=== PATIENT | female | born 2000 | race Caucasian/White ===

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

== ENCOUNTER 2019-12-23 17:17 | Emergency (ER) | payer OTHER ==
[2019-12-23] MEDS ORDERED: IBUPROFEN 600 MG TAB PO STA (18:13)
--- NOTE | 2019-12-23 18:37 | ED ---
ENT HPI - General Chief complaint: ENT Stated complaint: Tonsils Time Seen by Provider: 12/23/19 18:02 Source: patient Mode of arrival: ambulatory Limitations: no limitations - History of Present Illness Initial comments: Patient is a 19-year-old female presenting to the emergency Department with complaints of a sore throat 1 day. Patient states she felt fine yesterday and then woke up in the middle night with a sore throat. Patient states she's been feeling just generally ill today as well as her throat hurting. She denies any fever, chills, chest pain, shortness of breath, abdominal pain, nausea, vomiting, diarrhea. She states she is currently breast-feeding and has been taking Tylenol today with no relief of her sore throat. She states she has had tonsillitis in the past. She has no further complaints at this time. Upon arrival to the ER, patient was febrile to 100.3, pulse is 103, blood pressure 117/76, percent room air. - Related Data Home Medications Medication Instructions Recorded Confirmed Albuterol Inhaler (Mhu) [Ventolin 2 puff INHALATION RT-Q6H PRN 01/25/18 12/03/18 Hfa Inhaler (Mhu)] Previous Rx's Medication Instructions Recorded Acetaminophen Tab [Tylenol] 650 mg PO Q6HR PRN tab 07/26/18 [id number] Acid 1 each PO DAILY@1200 cap 07/26/18 [-U Capsule (formulary)] Ibuprofen [Motrin] 600 mg PO Q6HR PRN #30 tab 12/23/19 Penicillin V Potassium [Pen Vee K] 500 mg PO BID 10 Days #20 tablet 12/23/19 Allergies Allergy/AdvReac Type Severity Reaction Status Date / Time No Known Allergies Allergy Verified 12/23/19 17:21 Review of Systems ROS Statement: Those systems with pertinent positive or pertinent negative responses have been documented in the HPI. ROS Other: All systems not noted in ROS Statement are negative. Past Medical History Past Medical History: Asthma History of Any Multi-Drug Resistant Organisms: None Reported Past Surgical History: Appendectomy Past Anesthesia/Blood Transfusion Reactions: No Reported Reaction Past Psychological History: No Psychological Hx Reported Smoking Status: Former smoker Past Alcohol Use History: None Reported Past Drug Use History: Marijuana - Past Family History Mother Additional Family Medical History / Comment(s): gestational diabetes General Exam - General Exam Comments Initial Comments: GENERAL: Well-appearing, well-nourished and in no acute distress. HEAD: Atraumatic, normocephalic. EYES: Pupils equal round and reactive to light, extraocular movements intact, sclera anicteric, conjunctiva are normal. ENT: TMs normal, nares patent, oropharynx is erythematous, tonsils mildly enlarged with exudate. Moist mucous membranes. NECK: Normal range of motion, supple without lymphadenopathy or JVD. LUNGS: Breath sounds clear to auscultation bilaterally and equal. No wheezes rales or rhonchi. HEART: Regular rate and rhythm without murmurs, rubs or gallops. ABDOMEN: Soft, nontender, normoactive bowel sounds. No guarding, no rebound. No masses appreciated. : Deferred EXTREMITIES: Normal range of motion, no pitting or edema. No clubbing or cyanosis. NEUROLOGICAL: Normal speech, normal gait. PSYCH: Normal mood, normal affect. SKIN: Warm, Dry, normal turgor, no rashes or lesions noted. Limitations: no limitations Course Vital Signs 12/23/19 12/23/19 17:18 19:01 Temperature 100.3 F H 99 F Pulse Rate 103 H 89 Respiratory 18 16 Rate Blood Pressure 117/76 110/70 O2 Sat by Pulse 100 99 Oximetry Medical Decision Making - Medical Decision Making Patient is a 19-year-old female here for sore throat times one day. She did arrive febrile. Patient was given Motrin. Strep test is negative, culture is pending. I discussed with patient given her fever, history of tonsillitis, I will treat her with penicillin VK. She may continue with Motrin as needed for pain and swelling. She is in agreement with this plan of care. She'll follow up with her PCP. Return parameters were discussed with the patient she verbalized understanding. Case discussed with Dr. harrell. - Lab Data Lab Results 12/23/19 Range/Units 18:36 Group A Strep Rapid Negative (Negative) Disposition Clinical Impression: Tonsillitis Disposition: HOME SELF-CARE Condition: Stable Instructions (If sedation given, give patient instructions): Tonsillitis (ED) Additional Instructions: Please return to the Emergency Department if symptoms worsen or any other concerns. Take antibiotic as prescribed. Continue with Motrin for pain as well. Follow up with PCP. Prescriptions: Ibuprofen [Motrin] 600 mg PO Q6HR PRN #30 tab PRN Reason: Pain Penicillin V Potassium [Pen Vee K] 500 mg PO BID 10 Days #20 tablet Is patient prescribed a controlled substance at d/c from ED?: No Referrals: Sarita Corado MD [Primary Care Provider] - 1-2 days
[2019-12-23 19:02] VITALS: BP 110/70; PULSE 89; RESP 16; TEMP 99
== END 2019-12-23 19:01 | disposition home or self-care (01) ==
LOC: EC 17:17
DX: J03.90 Acute tonsillitis, unspecified (principal); J45.909 Unspecified asthma, uncomplicated; Z87.891 Personal history of nicotine dependence
CPT/HCPCS: 87081; 87430; 99283

== ENCOUNTER 2019-12-24 07:19 | Emergency (ER) | payer OTHER ==
[2019-12-24 07:28] VITALS: TEMP 98.5
[2019-12-24] MEDS ORDERED: diphenhydrAMINE 50 MG/ML 1 ML VIAL IVP STA (07:34)
[2019-12-24] MEDS ORDERED: ONDANSETRON 4 MG/2 ML VIAL IVP STA (07:34)
[2019-12-24] MEDS ORDERED: SODIUM CHLORIDE 0.9% 2,000 ML IV STA (07:34)
[2019-12-24] MEDS ORDERED: KETOROLAC 30 MG/ML 1 ML VIAL IVP STA (07:35)
--- NOTE | 2019-12-24 07:40 | ED ---
Nausea/Vomiting/Diarrhea HPI - General Chief complaint: Nausea/Vomiting/Diarrhea Stated complaint: Vomiting Time Seen by Provider: 12/24/19 07:29 Source: patient, RN notes reviewed Mode of arrival: ambulatory Limitations: no limitations - History of Present Illness Initial comments: This is a 19-year-old female presents emergency Department chief complaint of nausea vomiting sore throat. Patient was seen here yesterday diagnosed with acute tonsillitis. Negative strep at that time. Patient states that she's had a fever, swelling of her throat. She states she has no difficulty swallowing other discomfort. She states she's been taken Tylenol she did not fill her prescription for her medications. Patient states that she became very nauseated with the night states that she's been dry heaving at this point. Patient denies any sick contacts. Denies any neck pain or neck stiffness. Patient states she has mild discomfort happen when she vomits states it does resolve after. Denies any chance no dysuria no hematuria no diarrhea. - Related Data Previous Rx's Medication Instructions Recorded Amoxicillin/Potassium Clav 1 tab PO Q12HR #20 tab 12/24/19 [Augmentin 875-125 Tablet] Ondansetron Odt [Zofran Odt] 4 mg PO Q8HR PRN #14 tab 12/24/19 Allergies Allergy/AdvReac Type Severity Reaction Status Date / Time No Known Allergies Allergy Verified 12/24/19 09:29 Review of Systems ROS Statement: Those systems with pertinent positive or pertinent negative responses have been documented in the HPI. ROS Other: All systems not noted in ROS Statement are negative. Past Medical History Past Medical History: Asthma History of Any Multi-Drug Resistant Organisms: None Reported Past Surgical History: Appendectomy Past Anesthesia/Blood Transfusion Reactions: No Reported Reaction Past Psychological History: No Psychological Hx Reported Smoking Status: Former smoker Past Alcohol Use History: None Reported Past Drug Use History: Marijuana - Past Family History Mother Additional Family Medical History / Comment(s): gestational diabetes General Exam Limitations: no limitations General appearance: alert, in no apparent distress Head exam: Present: atraumatic, normocephalic, normal inspection Eye exam: Present: normal appearance, PERRL, EOMI. Absent: scleral icterus, conjunctival injection, periorbital swelling ENT exam: Present: mucous membranes moist, TM's normal bilaterally. Absent: normal oropharynx (Erythematous posterior fracture with edematous tonsils equal bilaterally, swelling secretions well there mild exudates noted) Neck exam: Present: normal inspection, full ROM, lymphadenopathy (Anterior cervical). Absent: tenderness, meningismus Respiratory exam: Present: normal lung sounds bilaterally. Absent: respiratory distress, wheezes, rales, rhonchi, stridor Cardiovascular Exam: Present: regular rate, normal rhythm, normal heart sounds. Absent: systolic murmur, diastolic murmur, rubs, gallop, clicks Back exam: Absent: CVA tenderness (R), CVA tenderness (L) Neurological exam: Present: alert, oriented X3 Skin exam: Present: warm, dry, intact, normal color. Absent: rash Course Vital Signs 12/24/19 12/24/19 07:26 09:02 Temperature 98.5 F Pulse Rate 105 H 80 Respiratory 18 16 Rate Blood Pressure 116/68 122/79 O2 Sat by Pulse 98 99 Oximetry Medical Decision Making - Medical Decision Making 19-year-old female presented for nausea vomiting. Patient had prior your visit which showed tonsillitis. Patient was discharged on Pen-Vee K ibuprofen. Patient states that she gets her prescription patient was hydrated, lab work reveals mild leukocytosis, urinalysis reveals evidence of recheck infection which she does complain of dysuria. Patient's had a fall is negative patient will be placed on Augmentin as she has urinary tract infection tonsillitis. Patient provided Zofran return parameters were discussed. Is no evidence of peritonsillar abscess. Patient did tolerate ice chips with no difficulty. - Lab Data Result diagrams: 12/24/19 08:07 12/24/19 08:07 Lab Results 12/24/19 12/24/19 12/24/19 Range/Units 08:07 08:07 08:07 WBC 16.5 H (4.0-11.0) k/uL RBC 4.74 (3.80-5.40) m/uL Hgb 13.9 (11.4-16.0) gm/dL Hct 43.0 (34.0-46.0) % MCV 90.7 (80.0-100.0) fL MCH 29.3 (25.0-35.0) pg MCHC 32.3 (31.0-37.0) g/dL RDW 12.2 (11.5-15.5) % Plt Count 177 (150-450) k/uL Neutrophils % 92 % Lymphocytes % 4 % Monocytes % 4 % Eosinophils % 0 % Basophils % 0 % Neutrophils # 15.1 H (1.3-7.7) k/uL Lymphocytes # 0.6 L (1.0-4.8) k/uL Monocytes # 0.7 (0-1.0) k/uL Eosinophils # 0.0 (0-0.7) k/uL Basophils # 0.0 (0-0.2) k/uL Sodium (137-145) mmol/L Potassium (3.5-5.1) mmol/L Chloride (98-107) mmol/L Carbon Dioxide (22-30) mmol/L Anion Gap mmol/L BUN (7-17) mg/dL Creatinine (0.52-1.04) mg/dL Est GFR (CKD-EPI)AfAm (>60 ml/min/1.73 sqM) Est GFR (CKD-EPI)NonAf (>60 ml/min/1.73 sqM) Glucose (74-99) mg/dL Calcium (8.4-10.2) mg/dL Total Bilirubin (0.2-1.3) mg/dL AST (14-36) U/L ALT (4-34) U/L Alkaline Phosphatase (38-126) U/L Total Protein (6.3-8.2) g/dL Albumin (3.5-5.0) g/dL Lipase 32 (23-300) U/L Urine Color Urine Appearance (Clear) Urine pH (5.0-8.0) Ur Specific Huntly (1.001-1.035) Urine Protein (Negative) Urine Glucose (UA) (Negative) Urine Ketones (Negative) Urine Blood (Negative) Urine Nitrite (Negative) Urine Bilirubin (Negative) Urine Urobilinogen (<2.0) mg/dL Ur Leukocyte Esterase (Negative) Urine RBC (0-5) /hpf Urine WBC (0-5) /hpf Ur Squamous Epith Cells (0-4) /hpf Urine Mucus (None) /hpf Urine HCG, Qual (Not Detectd) Heterophile Antibody Negative (Negative) 12/24/19 12/24/19 12/24/19 Range/Units 08:07 08:30 08:30 WBC (4.0-11.0) k/uL RBC (3.80-5.40) m/uL Hgb (11.4-16.0) gm/dL Hct (34.0-46.0) % MCV (80.0-100.0) fL MCH (25.0-35.0) pg MCHC (31.0-37.0) g/dL RDW (11.5-15.5) % Plt Count (150-450) k/uL Neutrophils % % Lymphocytes % % Monocytes % % Eosinophils % % Basophils % % Neutrophils # (1.3-7.7) k/uL Lymphocytes # (1.0-4.8) k/uL Monocytes # (0-1.0) k/uL Eosinophils # (0-0.7) k/uL Basophils # (0-0.2) k/uL Sodium 141 (137-145) mmol/L Potassium 4.2 (3.5-5.1) mmol/L Chloride 106 (98-107) mmol/L Carbon Dioxide 20 L (22-30) mmol/L Anion Gap 15 mmol/L BUN 14 (7-17) mg/dL Creatinine 0.73 (0.52-1.04) mg/dL Est GFR (CKD-EPI)AfAm >90 (>60 ml/min/1.73 sqM) Est GFR (CKD-EPI)NonAf >90 (>60 ml/min/1.73 sqM) Glucose 80 (74-99) mg/dL Calcium 9.5 (8.4-10.2) mg/dL Total Bilirubin 3.2 H (0.2-1.3) mg/dL AST 30 (14-36) U/L ALT 17 (4-34) U/L Alkaline Phosphatase 101 (38-126) U/L Total Protein 7.6 (6.3-8.2) g/dL Albumin 4.5 (3.5-5.0) g/dL Lipase (23-300) U/L Urine Color Yellow Urine Appearance Clear (Clear) Urine pH 6.0 (5.0-8.0) Ur Specific Huntly 1.039 H (1.001-1.035) Urine Protein 1+ H (Negative) Urine Glucose (UA) Negative (Negative) Urine Ketones 4+ H (Negative) Urine Blood Trace H (Negative) Urine Nitrite Negative (Negative) Urine Bilirubin Negative (Negative) Urine Urobilinogen 2.0 (<2.0) mg/dL Ur Leukocyte Esterase Large H (Negative) Urine RBC 5 (0-5) /hpf Urine WBC 46 H (0-5) /hpf Ur Squamous Epith Cells 2 (0-4) /hpf Urine Mucus Occasional H (None) /hpf Urine HCG, Qual Not Detected (Not Detectd) Heterophile Antibody (Negative) Disposition Clinical Impression: Tonsillitis, Dehydration, Nausea & vomiting, Urinary tract infection Disposition: HOME SELF-CARE Condition: Stable Instructions (If sedation given, give patient instructions): Acute Nausea and Vomiting (ED) Additional Instructions: Please return to the Emergency Department if symptoms worsen or any other concerns. Please start Augmentin prescription as directed Prescriptions: Amoxicillin/Potassium Clav [Augmentin 875-125 Tablet] 1 tab PO Q12HR #20 tab Ondansetron Odt [Zofran Odt] 4 mg PO Q8HR PRN #14 tab PRN Reason: Nausea Is patient prescribed a controlled substance at d/c from ED?: No Referrals: Sarita Corado MD [Primary Care Provider] - 1-2 days Time of Disposition: 09:45
[2019-12-24 08:24] LABS: Basophils % (A) 0 %; Eosinophils % (A) 0 %; HGB 13.9 gm/dL (11.4-16.0); Lymphocytes # (A) 0.6 k/uL (1.0-4.8); Lymphocytes % (A) 4 %; MCH 29.3 pg (25.0-35.0); MCHC 32.3 g/dL (31.0-37.0); MCV 90.7 fL (80.0-100.0); Mean Platelet Volume 7.6; Monocytes # (A) 0.7 k/uL (0-1.0); Monocytes % (A) 4 %; Neutrophils # (A) 15.1 k/uL (1.3-7.7); Neutrophils % (A) 92 %; Platelet Count 177 k/uL (150-450); RBC 4.74 m/uL (3.80-5.40); RDW 12.2 % (11.5-15.5); WBC 16.5 k/uL (4.0-11.0)
[2019-12-24 08:50] LABS: Appearance,Urine Clear (Clear); Bilirubin,Urine Negative (Negative); Blood,Urine Trace (Negative); Color,Urine Yellow; Glucose,Urine (UA) Negative (Negative); Ketones,Urine 4+ (Negative); Leukocyte Esterase,Urine Large (Negative); Mucus,Urine Occasional /hpf; Nitrite,Urine Negative (Negative); Protein,Urine 1+ (Negative); RBC,Urine 5 /hpf (0-5); Specific Gravity,Urine 1.039 (1.001-1.035); Squamous Epithelial Cell,Urine 2 /hpf (0-4); WBC,Urine 46 /hpf (0-5)
[2019-12-24] MEDS ORDERED: cefTRIAXone IN SWFI 1,000 MG/10 ML SYRINGE IVP STA (08:51)
[2019-12-24 09:03] VITALS: RESP 16
[2019-12-24 09:29] LABS: ALT 17 U/L (4-34); AST 30 U/L (14-36); African American GFR (CKD) >90 (>60 ml/min/1.73 sqM); Albumin 4.5 g/dL (3.5-5.0); Alkaline Phosphatase 101 U/L (38-126); Anion Gap 15 mmol/L; Blood Urea Nitrogen 14 mg/dL (7-17); Calcium 9.5 mg/dL (8.4-10.2); Carbon Dioxide 20 mmol/L (22-30); Chloride 106 mmol/L (98-107); Glucose 80 mg/dL (74-99); Non-African American GFR(CKD) >90 (>60 ml/min/1.73 sqM); Potassium 4.2 mmol/L (3.5-5.1); Sodium 141 mmol/L (137-145); Total Bilirubin 3.2 mg/dL (0.2-1.3); Total Protein 7.6 g/dL (6.3-8.2)
[2019-12-24] MEDS ORDERED: ONDANSETRON 4 MG ODT STARTER PACK 2 TAB BTL PO STA (09:41)
[2019-12-24 09:50] VITALS: BP 103/53; PULSE 75
== END 2019-12-24 09:48 | disposition home or self-care (01) ==
LOC: EC 07:19
DX: N39.0 Urinary tract infection, site not specified (principal); J03.90 Acute tonsillitis, unspecified; E86.0 Dehydration; Z87.891 Personal history of nicotine dependence
CPT/HCPCS: 36415; 80053; 83690; 85025; 86308; 81001; 81025; 87086; 99284; 96374; 96375 ×3; 96361; J1200; J2405; J0696; J1885; S0119

== ENCOUNTER → 2020-05-07 | Outpatient (CLI) | payer OTHER ==
--- NOTE | 2020-05-07 16:13 | US ---
EXAMINATION TYPE: Transabdominal DATE OF EXAM: 05/07/2020 1:21 PM COMPARISON: NONE CLINICAL HISTORY: Z36 confirm dates. EXAM PERFORMED: ultrasound EXAM MEASUREMENTS: GESTATIONAL AGE / DATING Physician Established: Not yet established Dates by LMP: unknown Dates by First Scan: No previous this is first scan Dates by Current Scan for: (12 weeks/0 days) EDC: 6--20 MATERNAL ANATOMY Uterus: 12.4 x 8.3 x 8.7cm Right Ovary: obscured by overlying bowel gas Left Ovary: 2.7 x 2.3 x 1.8cm Post CDS / Adnexa: wnl Presence of free fluid: no GESTATION / SURVEY CRL: 5.4cm (12 weeks/0 days) Yolk Sac (normal less than 6mm): not visualized Heart Rate: 167 bpm Rhythm: Normal IUP: Viable IUP Date of LMP: unknown Beta HcG (if available): Not available at this time IMPRESSION: 1. Single intrauterine gestation estimated at 12 weeks 0 days gestation based on crown-rump length. C ardiac activity measures 167 bpm.
== END | disposition home or self-care (01) ==
LOC: RADUSWWP 12:58
PROVIDERS: ATTEND Obstetrics & Gynecology
DX: Z36.89 Encounter for other specified antenatal screening (principal); Z3A.12 12 weeks gestation of pregnancy
CPT/HCPCS: 76801

== ENCOUNTER 2020-09-24 17:50 | Outpatient (CLI) | payer OTHER ==
[2020-09-24 18:40] LABS: Appearance,Urine Clear (Clear); Bilirubin,Urine Negative (Negative); Blood,Urine Negative (Negative); Color,Urine Light Yellow; Glucose,Urine (UA) Negative (Negative); Ketones,Urine Negative (Negative); Leukocyte Esterase,Urine Moderate (Negative); Mucus,Urine Rare /hpf; Nitrite,Urine Negative (Negative); Protein,Urine Negative (Negative); RBC,Urine 1 /hpf (0-5); Specific Gravity,Urine 1.002 (1.001-1.035); Squamous Epithelial Cell,Urine 3 /hpf (0-4); Urobilinogen,Urine <2.0 mg/dL (<2.0); WBC,Urine 4 /hpf (0-5)
[2020-09-24] MEDS ORDERED: BETAMET ACET-BETAMETH SOD PHOS 6 MG/ML MDV IM SCH (20:00)
[2020-09-24 20:11] VITALS: BP 114/66; PULSE 98; RESP 18; TEMP 98.1
--- NOTE | 2020-09-25 04:58 | P.MSEPDOC ---
Presenting Problems - Arrival Data Date of Arrival on Unit: 09/24/20 Time of Arrival on Unit: 17:50 Mode of Transport: Ambulatory - Complaint OB-Reason for Admission/Chief Complaint: Possible Onset of Labor, Rule Out SROM Comment: pt states since yesterday am she thought she was experiencing leaking of small amount of clear fluid and pt states she is having abdominal pain that comes and goes since yesterday that she is unsure if are contractions or not. Medical History - Information : 2 Para: 1 Term: 0 : 1 Abortions: Spontaneous or Elective: 0 Number of Living Children: 1 - Gestational Age Gestational Age by GRANT (wks/days): 32 Weeks and 0 Days Review of Systems - Review of Systems Constitutional: No problems Breast: No problems ENT: No problems Cardiovascular: No problems Respiratory: No problems Gastrointestinal: No problems Genitourinary: No problems Musculoskeletal: No problems Neurological: No problems Skin: No problems Vital Signs - Temperature Temperature: 98.1 F Temperature Source: Temporal Artery Scan - Pulse Right Pulse Oximetery Pulse Rate: 98 Pulse Assessment Method: Pulse Oximetry - Respirations Respiratory Rate: 18 Oxygen Delivery Method: Room Air O2 Sat by Pulse Oximetry: 98 - Blood Pressure Right Arm Blood Pressure: 114/66 Blood Pressure Mean: 82 Blood Pressure Source: Automatic Cuff Medical Screen Scoring (Pre) - Cervical Exam Dilation: 1-3 cm = 1 Membranes: Intact - Uterine Contractions Frequency: < 36 weeks = 6 Duration: N/A Intensity: N/A - Maternal Vital Signs Maternal Temperature: N/A Maternal Blood Pressure: N/A Signs of Preeclampsia: N/A Maternal Respirations: N/A - Maternal Trauma Maternal Trauma: N/A - Assessment - Baby A Baseline FHR: 140 Heart Rate - NICHD Category: Category I (Normal) = 0 NST: Reactive Position: N/A Station: N/A - Total Score - Baby A Total Score - Baby A: 7 - Total Score - Baby B Total Score - Baby B: 7 - Total Score - Baby C Total Score - Baby C: 7 - Level of Risk - Baby A Level of Risk - Baby A: Medium (6-9) - Level of Risk - Baby B Level of Risk - Baby B: Medium (6-9) - Level of Risk - Baby C Level of Risk - Baby C: Medium (6-9) Physician Notification (Pre) - Physician Notified Physician Notified Date: 09/24/20 Physician Notified Time: 18:36 New Order Received: Yes - Notification Comment Comment: order to send FFN and call back with update when FFN and UA results come back. possibly recheck in a couple hours, dr glass will decide on betamethasone once labs come back. Medical Screen Scoring (Post) - Cervical Exam Dilation: 1-3 cm = 1 Membranes: Intact - Uterine Contractions Frequency: N/A Duration: N/A Intensity: N/A - Maternal Vital Signs Maternal Temperature: N/A Maternal Blood Pressure: N/A Signs of Preeclampsia: N/A Maternal Respirations: N/A - Maternal Trauma Maternal Trauma: N/A - Assessment - Baby A Heart Rate: 140 Heart Rate - NICHD Category: Category I (Normal) = 0 NST: Reactive Position: N/A Station: N/A - Total Score Total Score - Baby A: 1 Total Score - Baby B: 1 Total Score - Baby C: 1 - Post Treatment Level of Risk Post Treatment Level of Risk - Baby A: Low (0-5) Post Treatment Level of Risk - Baby B: Low (0-5) Post Treatment Level of Risk - Baby C: Low (0-5) Physician Notification (Post) - Physician Notified Physician Notified Date: 09/24/20 Physician Notified Time: 19:56 Physician/Practitioner Notified:: Dr. Marquez Spoke With: Dr. Marquez New Order Received: Yes - Notification Comment Comment: Dr. Marquez called and given pt lab results. FFN positive. UA results readback. Orders recieved to perform vag exam. If pt is the same to administer dose of. betamethasone IM 12MG and d/c to home. To educate pt to return in 24 hrs for second. dose. Disposition - Disposition OB Disposition: Discharge to home Discharge Date: 09/24/20 Discharge Time: 20:25 I agree with the RN Medical Screening Exam: Yes Case reviewed; plan agreed upon as documented in EMR&OBIX.: Yes Diagnosis: LABOR WITHOUT DELIVERY, THIRD TRIMESTER
== END 2020-09-24 20:25 | disposition home or self-care (01) ==
LOC: FBPOP 17:50
PROVIDERS: ATTEND Obstetrics & Gynecology
DX: O60.03 Preterm labor without delivery, third trimester (principal); Z3A.32 32 weeks gestation of pregnancy
CPT/HCPCS: 59025; 96372; 84112; 82731; 81001; G0463; J0702; 99214

== ENCOUNTER 2020-09-25 19:48 | Outpatient (CLI) | payer OTHER ==
[2020-09-25] MEDS ORDERED: BETAMET ACET-BETAMETH SOD PHOS 6 MG/ML MDV IM ONE (20:16)
[2020-09-25 20:44] VITALS: BP 104/58; PULSE 93; RESP 16; TEMP 98.2
--- NOTE | 2020-10-03 02:36 | P.MSEPDOC ---
Presenting Problems - Arrival Data Date of Arrival on Unit: 09/25/20 Time of Arrival on Unit: 19:48 Mode of Transport: Ambulatory - Complaint OB-Reason for Admission/Chief Complaint: NST, Celestone Injection Medical History - Information : 2 Para: 1 Term: 0 : 1 Abortions: Spontaneous or Elective: 0 Number of Living Children: 1 - Gestational Age Gestational Age by GRANT (wks/days): 32 Weeks and 1 Days - History Complications: Prior Review of Systems - Review of Systems Constitutional: No problems Breast: No problems ENT: No problems Cardiovascular: No problems Respiratory: No problems Gastrointestinal: No problems Genitourinary: No problems Musculoskeletal: No problems Neurological: No problems Skin: No problems Vital Signs - Temperature Temperature: 98.2 F Temperature Source: Oral - Pulse Right Sitting Brachial Pulse Rate: 93 Pulse Assessment Method: Automatic Cuff - Respirations Respiratory Rate: 16 Oxygen Delivery Method: Room Air O2 Sat by Pulse Oximetry: 98 - Blood Pressure Right Arm Sitting Blood Pressure: 104/58 Blood Pressure Mean: 73 Blood Pressure Source: Automatic Cuff Medical Screen Scoring (Pre) - Cervical Exam Dilation: Exam Deferred Effacement: Exam Deferred Membranes: Intact - Uterine Contractions Frequency: N/A Duration: N/A Intensity: N/A - Maternal Vital Signs Maternal Temperature: N/A Maternal Blood Pressure: N/A Signs of Preeclampsia: N/A Maternal Respirations: N/A - Maternal Trauma Maternal Trauma: N/A - Assessment - Baby A Baseline FHR: 145 Heart Rate - NICHD Category: Category I (Normal) = 0 NST: Reactive - Total Score - Baby A Total Score - Baby A: 0 - Total Score - Baby B Total Score - Baby B: 0 - Total Score - Baby C Total Score - Baby C: 0 - Level of Risk - Baby A Level of Risk - Baby A: Low (0-5) - Level of Risk - Baby B Level of Risk - Baby B: Low (0-5) - Level of Risk - Baby C Level of Risk - Baby C: Low (0-5) Physician Notification (Pre) - Physician Notified Physician Notified Date: 09/25/20 Physician Notified Time: 20:08 New Order Received: Yes (TONIA isidro, d/c) Disposition - Disposition OB Disposition: Discharge to home, Written follow up instructions reviewed Discharge Date: 09/25/20 Discharge Time: 20:30 I agree with the RN Medical Screening Exam: Yes Case reviewed; plan agreed upon as documented in EMR&OBIX.: Yes Diagnosis: LABOR WITHOUT DELIVERY, THIRD TRIMESTER
== END 2020-09-25 20:30 | disposition home or self-care (01) ==
LOC: FBPOP 19:48
PROVIDERS: ATTEND Obstetrics & Gynecology
DX: O60.03 Preterm labor without delivery, third trimester (principal); Z3A.32 32 weeks gestation of pregnancy
CPT/HCPCS: 59025; 96372; G0463; J0702; 99213

== ENCOUNTER 2020-10-01 13:49 | Outpatient (CLI) | payer OTHER ==
[2020-10-01 14:33] LABS: Appearance,Urine Clear (Clear); Bilirubin,Urine Negative (Negative); Blood,Urine Negative (Negative); Color,Urine Light Yellow; Glucose,Urine (UA) Negative (Negative); Ketones,Urine Negative (Negative); Leukocyte Esterase,Urine Negative (Negative); Nitrite,Urine Negative (Negative); PH, Urine 7.5 (5.0-8.0); Protein,Urine Negative (Negative); Specific Gravity,Urine 1.002 (1.001-1.035); Urobilinogen,Urine <2.0 mg/dL (<2.0)
[2020-10-01 15:30] VITALS: BP 107/60; PULSE 85; RESP 16; TEMP 98.4
--- NOTE | 2020-10-01 19:12 | P.MSEPDOC ---
Presenting Problems - Arrival Data Date of Arrival on Unit: 10/01/20 Time of Arrival on Unit: 13:49 Mode of Transport: Ambulatory - Complaint OB-Reason for Admission/Chief Complaint: Possible Onset of Labor Medical History - Information : 2 Para: 1 Term: 0 : 1 Abortions: Spontaneous or Elective: 0 Number of Living Children: 1 - Gestational Age Gestational Age by GRANT (wks/days): 33 Weeks and 0 Days Review of Systems - Review of Systems Constitutional: No problems Breast: No problems ENT: No problems Cardiovascular: No problems Respiratory: No problems Gastrointestinal: No problems Genitourinary: No problems Musculoskeletal: No problems Neurological: No problems Skin: No problems Vital Signs - Temperature Temperature: 98.4 F Temperature Source: Temporal Artery Scan - Pulse Right Pulse Rate: 85 Pulse Assessment Method: Automatic Cuff - Respirations Respiratory Rate: 16 Oxygen Delivery Method: Room Air O2 Sat by Pulse Oximetry: 99 - Blood Pressure Right Arm Blood Pressure: 107/60 Blood Pressure Mean: 75 Blood Pressure Source: Automatic Cuff Medical Screen Scoring (Pre) - Cervical Exam Dilation: 1-3 cm = 1 Membranes: Intact - Uterine Contractions Frequency: N/A Duration: N/A Intensity: N/A - Maternal Vital Signs Maternal Temperature: N/A Maternal Blood Pressure: N/A Signs of Preeclampsia: N/A Maternal Respirations: N/A - Maternal Trauma Maternal Trauma: N/A - Assessment - Baby A Baseline FHR: 130 Heart Rate - NICHD Category: Category I (Normal) = 0 NST: Reactive Position: N/A Station: N/A - Total Score - Baby A Total Score - Baby A: 1 - Total Score - Baby B Total Score - Baby B: 1 - Total Score - Baby C Total Score - Baby C: 1 - Level of Risk - Baby A Level of Risk - Baby A: Low (0-5) - Level of Risk - Baby B Level of Risk - Baby B: Low (0-5) - Level of Risk - Baby C Level of Risk - Baby C: Low (0-5) Physician Notification (Pre) - Physician Notified Physician Notified Date: 10/01/20 Physician Notified Time: 15:10 New Order Received: Yes (discharge home to keep appt as scheduled) Disposition - Disposition OB Disposition: Discharge to home Discharge Date: 10/01/20 Discharge Time: 15:29 I agree with the RN Medical Screening Exam: Yes Case reviewed; plan agreed upon as documented in EMR&OBIX.: Yes Diagnosis: FALSE LABOR BEFORE 37 COMPLETED WEEKS OF GEST, THIRD TRI
== END 2020-10-01 15:10 | disposition home or self-care (01) ==
LOC: FBPOP 13:49
PROVIDERS: ATTEND Obstetrics & Gynecology
DX: O47.03 False labor before 37 completed weeks of gestation, third trimester (principal); Z3A.33 33 weeks gestation of pregnancy
CPT/HCPCS: 59025; 82731; 81003; G0463; 99213

== ENCOUNTER 2020-10-16 20:34 | Outpatient (CLI) | payer OTHER ==
[2020-10-16 21:34] VITALS: BP 108/63; PULSE 80; RESP 16; TEMP 97.1
--- NOTE | 2020-11-06 08:03 | P.MSEPDOC ---
Presenting Problems - Arrival Data Date of Arrival on Unit: 10/16/20 Time of Arrival on Unit: 20:30 Mode of Transport: Ambulatory - Complaint OB-Reason for Admission/Chief Complaint: Pain Comment: cramping over last two hours, shooting vaginal pain, dizziness Medical History - Information : 2 Para: 1 Term: 0 : 1 Abortions: Spontaneous or Elective: 0 Number of Living Children: 1 - Gestational Age Gestational Age by GRANT (wks/days): 35 Weeks and 1 Days - History Complications: Prior Review of Systems - Review of Systems Constitutional: No problems Breast: No problems ENT: No problems Cardiovascular: No problems Respiratory: No problems Gastrointestinal: No problems Genitourinary: No problems Musculoskeletal: No problems Neurological: Dizziness Skin: No problems Vital Signs - Temperature Temperature: 97.1 F - Pulse Right Sitting Brachial Pulse Rate: 80 Pulse Assessment Method: Auscultation - Respirations Respiratory Rate: 16 Oxygen Delivery Method: Room Air - Blood Pressure Right Arm Sitting Blood Pressure: 108/63 Blood Pressure Mean: 78 Blood Pressure Source: Automatic Cuff Medical Screen Scoring (Pre) - Cervical Exam Dilation: 1-3 cm = 1 Effacement: More than 50% = 2 Membranes: Intact - Uterine Contractions Frequency: < 36 weeks = 6 Duration: N/A Intensity: N/A - Maternal Vital Signs Maternal Temperature: N/A Maternal Blood Pressure: N/A Signs of Preeclampsia: N/A Maternal Respirations: N/A - Maternal Trauma Maternal Trauma: N/A - Assessment - Baby A Baseline FHR: 135 Heart Rate - NICHD Category: Category I (Normal) = 0 NST: Reactive Position: N/A Station: N/A - Total Score - Baby A Total Score - Baby A: 9 - Total Score - Baby B Total Score - Baby B: 9 - Total Score - Baby C Total Score - Baby C: 9 - Level of Risk - Baby A Level of Risk - Baby A: Medium (6-9) - Level of Risk - Baby B Level of Risk - Baby B: Medium (6-9) - Level of Risk - Baby C Level of Risk - Baby C: Medium (6-9) Physician Notification (Pre) - Physician Notified Physician Notified Date: 10/16/20 Physician Notified Time: 21:09 New Order Received: Yes - Notification Comment Comment: orally hydrate, recheck cervix an hour from first exam Medical Screen Scoring (Post) - Cervical Exam Membranes: Intact - Uterine Contractions Frequency: > 5 minutes apart = 1 Duration: N/A Intensity: N/A - Maternal Vital Signs Maternal Temperature: N/A Maternal Blood Pressure: N/A Signs of Preeclampsia: N/A Maternal Respirations: N/A - Maternal Trauma Maternal Trauma: N/A - Assessment - Baby A Heart Rate: 135 Heart Rate - NICHD Category: Category I (Normal) = 0 NST: Reactive - Total Score Total Score - Baby A: 1 Total Score - Baby B: 1 Total Score - Baby C: 1 - Post Treatment Level of Risk Post Treatment Level of Risk - Baby A: Low (0-5) Disposition - Disposition OB Disposition: Discharge to home I agree with the RN Medical Screening Exam: Yes Case reviewed; plan agreed upon as documented in EMR&OBIX.: Yes Diagnosis: FALSE LABOR BEFORE 37 COMPLETED WEEKS OF GEST, THIRD TRI
== END 2020-10-16 22:01 | disposition home or self-care (01) ==
LOC: FBPOP 20:34
PROVIDERS: ATTEND Obstetrics & Gynecology
DX: O47.03 False labor before 37 completed weeks of gestation, third trimester (principal); Z3A.35 35 weeks gestation of pregnancy; Z91.048 Other nonmedicinal substance allergy status; Z91.040 Latex allergy status; Z87.891 Personal history of nicotine dependence
CPT/HCPCS: 59025; G0463; 99213

== ENCOUNTER 2020-10-18 11:35 | Outpatient (CLI) | payer OTHER ==
--- NOTE | 2020-10-18 12:37 | US ---
EXAMINATION TYPE: US OB >= 14 wk fetus DATE OF EXAM: 10/18/2020 COMPARISON: US May 07, 2020 CLINICAL HISTORY: decreased movement; TECHNIQUE: Transabdominal (TA) GESTATIONAL AGE / DATING Physician Established: (35 weeks/3 days) EDC: 11/19/2020 Dates by LMP: (35 weeks/3 days) EDC: 11/19/2020 Dates by First Scan: (35 weeks/3 days) EDC: 11/19/2020 Dates by Current Scan: (33 weeks/5 days) EDC: 12/01/2020 Beta HCG (if available): Not available at this time SURVEY IUP: Single, Live IUP PLACENTA: Anterior ; venous roman noted mid placenta at side PREVIA: No Previa ENID: 13.7 cm Normal CERVICAL LENGTH (transabdominal: norm > 3.0cm): 3.9 cm BIOMETRY PRESENTATION: Vertex LIE: Longitudinal BPD: 8.3 cm 33 weeks / 2 days HC: 30.7 cm 34 weeks / 1 day AC: 30.5 cm 34 weeks / 3 days FL: 6.6 cm 34 weeks / 0 days ESTIMATED WEIGHT IN GRAMS: 2371.0 grams ESTIMATED WEIGHT IN LBS/OZ: 5 lbs. 4 oz. WEIGHT PERCENTAGE BASED ON ESTABLISHED DATES: 17.6% HC/AC: 1.01 Normal FL/AC: 21.69 Normal HEART RATE: 153 bpm RHYTHM: Normal Single, live IUP, 33 weeks/5 days, EDC: 12/01/2020 , [id number]; movement noted by hotel valet attendant. T ech findings reported to patient's RN, Melly, at US end. Single live intrauterine gestation redemonstrated. Normal cephalad presentation currently. No cervica l thinning. Estimated amniotic fluid index within normal limits. No placenta previa. biometry m easurements congruent and within normal limits with satisfactory interval progression from prior ultr asound. IMPRESSION: As above. Unremarkable study.
== END 2020-10-18 12:49 | disposition home or self-care (01) ==
LOC: FBPOP 11:35
PROVIDERS: ATTEND Obstetrics & Gynecology
DX: O36.8130 Decreased fetal movements, third trimester, not applicable or unspecified (principal); Z3A.33 33 weeks gestation of pregnancy
CPT/HCPCS: 59025; 76805

== ENCOUNTER 2020-11-01 21:45 | Outpatient (CLI) | payer OTHER ==
[2020-11-01 23:20] VITALS: BP 120/74; PULSE 101; RESP 18; TEMP 97.2
--- NOTE | 2020-11-02 09:17 | P.MSEPDOC ---
Presenting Problems - Arrival Data Date of Arrival on Unit: 11/01/20 Time of Arrival on Unit: 21:45 Mode of Transport: Ambulatory - Complaint OB-Reason for Admission/Chief Complaint: Possible Onset of Labor Comment: cx 2-3mins apart x2hrs Medical History - Information : 2 Para: 1 Term: 0 : 1 Abortions: Spontaneous or Elective: 0 Number of Living Children: 1 - Gestational Age Gestational Age by GRANT (wks/days): 37 Weeks and 3 Days - History Complications: Prior Review of Systems - Review of Systems Constitutional: No problems Breast: No problems ENT: No problems Cardiovascular: No problems Respiratory: No problems Gastrointestinal: No problems Genitourinary: No problems Musculoskeletal: No problems Neurological: No problems Skin: No problems Vital Signs - Temperature Temperature: 97.2 F Temperature Source: Temporal Artery Scan - Pulse Pulse Oximetery Pulse Rate: 101 Pulse Assessment Method: Pulse Oximetry - Respirations Respiratory Rate: 18 Oxygen Delivery Method: Room Air O2 Sat by Pulse Oximetry: 100 - Blood Pressure Right Arm Blood Pressure: 120/74 Blood Pressure Mean: 89 Blood Pressure Source: Automatic Cuff Medical Screen Scoring (Pre) - Cervical Exam Dilation: 1-3 cm = 1 Effacement: More than 50% = 2 Membranes: Intact - Uterine Contractions Frequency: > or = 36 weeks =2 Duration: > 40 seconds = 2 Intensity: N/A - Maternal Vital Signs Maternal Temperature: N/A Maternal Blood Pressure: N/A Signs of Preeclampsia: N/A Maternal Respirations: N/A - Maternal Trauma Maternal Trauma: N/A - Assessment - Baby A Baseline FHR: 125 Heart Rate - NICHD Category: Category I (Normal) = 0 NST: Reactive Position: N/A Station: N/A - Total Score - Baby A Total Score - Baby A: 7 - Total Score - Baby B Total Score - Baby B: 7 - Total Score - Baby C Total Score - Baby C: 7 - Level of Risk - Baby A Level of Risk - Baby A: Medium (6-9) - Level of Risk - Baby B Level of Risk - Baby B: Medium (6-9) - Level of Risk - Baby C Level of Risk - Baby C: Medium (6-9) Physician Notification (Pre) - Physician Notified Physician Notified Date: 05/20/21 Physician Notified Time: 23:03 New Order Received: Yes - Notification Comment Comment: Dr. Fatima called, report given on maternal and status, cx since 1999. every 2-3mins, SVE today 3.5/80% by Dr. Gerber, no change after being in triage for 1. hour, cx 2-5mins apart. Pt crying from contraction pain. Pt also states she thought she. was leaking fluid after I checked her the first time, amnisure negative. Per Dr. Fatima, pt can stay another hour and if no change in SVE then can be discharged home or. pt can be discharged now. Disposition - Disposition OB Disposition: Discharge to home Discharge Date: 11/01/20 Discharge Time: 23:10 I agree with the RN Medical Screening Exam: Yes Case reviewed; plan agreed upon as documented in EMR&OBIX.: Yes Diagnosis: FALSE LABOR AT OR AFTER 37 COMPLETED WEEKS OF GESTATION
== END 2020-11-01 23:10 | disposition home or self-care (01) ==
LOC: FBPOP 21:45
PROVIDERS: ATTEND Obstetrics & Gynecology
DX: O47.1 False labor at or after 37 completed weeks of gestation (principal); Z3A.37 37 weeks gestation of pregnancy; Z91.040 Latex allergy status; Z87.891 Personal history of nicotine dependence
CPT/HCPCS: 59025; 84112; G0463; 99213

== ENCOUNTER 2020-11-04 09:16 | Outpatient (CLI) | payer OTHER ==
[2020-11-04 10:28] VITALS: BP 99/65; PULSE 79; RESP 16; TEMP 97.7
--- NOTE | 2020-11-05 08:30 | P.MSEPDOC ---
Presenting Problems - Arrival Data Date of Arrival on Unit: 11/04/20 Time of Arrival on Unit: 09:16 Mode of Transport: Ambulatory - Complaint OB-Reason for Admission/Chief Complaint: Possible Onset of Labor, Rule Out SROM Comment: thinks water broke at 2030 last night. mucusy discharge since . also having contx Medical History - Information : 2 Para: 1 Term: 0 : 1 Abortions: Spontaneous or Elective: 0 Number of Living Children: 1 - Gestational Age Gestational Age by GRANT (wks/days): 37 Weeks and 6 Days - History Complications: Prior Review of Systems - Review of Systems Constitutional: No problems Breast: No problems ENT: No problems Cardiovascular: No problems Respiratory: No problems Gastrointestinal: No problems Genitourinary: No problems Musculoskeletal: No problems Neurological: No problems Skin: No problems Comment: has had labor meds and celestone x2 with this preg. Vital Signs - Temperature Temperature: 97.7 F Temperature Source: Oral - Pulse Radial Pulse Rate: 79 Pulse Assessment Method: Automatic Cuff - Respirations Respiratory Rate: 16 Oxygen Delivery Method: Room Air O2 Sat by Pulse Oximetry: 98 - Blood Pressure Right Arm Blood Pressure: 99/65 Blood Pressure Mean: 76 Blood Pressure Source: Automatic Cuff Medical Screen Scoring (Pre) - Cervical Exam Dilation: 1-3 cm = 1 Effacement: More than 50% = 2 Membranes: Intact - Uterine Contractions Frequency: > or = 36 weeks =2 Duration: N/A Intensity: N/A - Maternal Vital Signs Maternal Temperature: N/A Maternal Blood Pressure: N/A Signs of Preeclampsia: N/A Maternal Respirations: N/A - Maternal Trauma Maternal Trauma: N/A - Assessment - Baby A Baseline FHR: 135 Heart Rate - NICHD Category: Category I (Normal) = 0 NST: Reactive Position: N/A Station: N/A - Total Score - Baby A Total Score - Baby A: 5 - Total Score - Baby B Total Score - Baby B: 5 - Total Score - Baby C Total Score - Baby C: 5 - Level of Risk - Baby A Level of Risk - Baby A: Low (0-5) - Level of Risk - Baby B Level of Risk - Baby B: Low (0-5) - Level of Risk - Baby C Level of Risk - Baby C: Low (0-5) Physician Notification (Pre) - Physician Notified Physician Notified Date: 11/04/20 Physician Notified Time: 09:45 New Order Received: Yes (assess/call/october discharge home with instructions) Disposition - Disposition OB Disposition: Discharge to home Discharge Date: 11/04/20 Discharge Time: 10:06 I agree with the RN Medical Screening Exam: Yes Case reviewed; plan agreed upon as documented in EMR&OBIX.: Yes Diagnosis: FALSE LABOR AT OR AFTER 37 COMPLETED WEEKS OF GESTATION
== END 2020-11-04 10:06 | disposition home or self-care (01) ==
LOC: FBPOP 09:16
PROVIDERS: ATTEND Obstetrics & Gynecology
DX: O47.1 False labor at or after 37 completed weeks of gestation (principal); Z3A.37 37 weeks gestation of pregnancy; Z91.040 Latex allergy status; Z87.891 Personal history of nicotine dependence
CPT/HCPCS: 59025; 84112; G0463; 99213

== ENCOUNTER 2020-11-05 19:30 | Outpatient (CLI) | payer OTHER ==
[2020-11-05 21:08] VITALS: BP 110/69; PULSE 81; RESP 16; TEMP 96.9
--- NOTE | 2020-11-07 16:29 | P.MSEPDOC ---
Presenting Problems - Arrival Data Date of Arrival on Unit: 11/05/20 Time of Arrival on Unit: 20:54 Mode of Transport: Ambulatory - Complaint OB-Reason for Admission/Chief Complaint: Possible Onset of Labor Comment: Pt states not feeling infant move since this morning, increased pelvic pressure. and increased contractions since yesterday, pain 10/10 with contractions, when timing. contractions every 1-2 minutes. Medical History - Information : 2 Para: 1 Term: 1 : 0 Abortions: Spontaneous or Elective: 0 Number of Living Children: 1 - Gestational Age Gestational Age by GRANT (wks/days): 38 Weeks and 0 Days Review of Systems - Review of Systems Constitutional: No problems Breast: No problems ENT: No problems Cardiovascular: No problems Respiratory: No problems Gastrointestinal: No problems Genitourinary: No problems Musculoskeletal: No problems Neurological: No problems Skin: No problems Vital Signs - Temperature Temperature: 96.9 F Temperature Source: Temporal Artery Scan - Pulse Right Brachial Pulse Rate: 81 Pulse Assessment Method: Automatic Cuff - Respirations Respiratory Rate: 16 Oxygen Delivery Method: Room Air O2 Sat by Pulse Oximetry: 100 - Blood Pressure Right Arm Blood Pressure: 110/69 Blood Pressure Mean: 82 Blood Pressure Source: Automatic Cuff Medical Screen Scoring (Pre) - Cervical Exam Dilation: 1-3 cm = 1 Effacement: More than 50% = 2 Membranes: Intact - Uterine Contractions Frequency: > 5 minutes apart = 1 Duration: > 40 seconds = 2 Intensity: N/A - Maternal Vital Signs Maternal Temperature: N/A Signs of Preeclampsia: N/A Maternal Respirations: N/A - Maternal Trauma Maternal Trauma: N/A - Assessment - Baby A Baseline FHR: 135 Heart Rate - NICHD Category: Category I (Normal) = 0 NST: Reactive - Total Score - Baby A Total Score - Baby A: 6 - Total Score - Baby B Total Score - Baby B: 6 - Total Score - Baby C Total Score - Baby C: 6 - Level of Risk - Baby A Level of Risk - Baby A: Medium (6-9) - Level of Risk - Baby B Level of Risk - Baby B: Medium (6-9) - Level of Risk - Baby C Level of Risk - Baby C: Medium (6-9) Physician Notification (Pre) - Physician Notified Physician Notified Date: 11/05/20 Physician Notified Time: 20:54 New Order Received: Yes - Notification Comment Comment: Report given on pt s/sx, feeling infant move in triage, contraction pattern,. sve no change and appointment on with Dr. Gerber. Orders to d/c pt home at this time and follow up as planned. Disposition - Disposition OB Disposition: Discharge to home, Written follow up instructions reviewed Discharge Date: 11/05/20 Discharge Time: 20:54 I agree with the RN Medical Screening Exam: Yes Case reviewed; plan agreed upon as documented in EMR&OBIX.: Yes Diagnosis: FALSE LABOR AT OR AFTER 37 COMPLETED WEEKS OF GESTATION
== END 2020-11-05 21:00 | disposition home or self-care (01) ==
LOC: FBPOP 19:30
PROVIDERS: ATTEND Obstetrics & Gynecology
DX: O47.1 False labor at or after 37 completed weeks of gestation (principal); Z3A.37 37 weeks gestation of pregnancy
CPT/HCPCS: 59025; G0463; 99213

== ENCOUNTER 2020-11-07 01:30 | Inpatient (IN) | payer OTHER ==
[2020-11-07] MEDS ORDERED: TERBUTALINE 1 MG/ML VIAL SQ PRN (02:22)
[2020-11-07] MEDS ORDERED: CARBOPROST TROMETHAMINE 250 MCG/ML 1 ML AMP IM PRN (02:22)
[2020-11-07] MEDS ORDERED: OXYTOCIN 10 UNIT/ML 1 ML VIAL IM PRN (02:22)
[2020-11-07] MEDS ORDERED: LIDOCAINE 0.5% (PF) 5 MG/ML (50 ML SDV) SQ PRN (02:22)
[2020-11-07] MEDS ORDERED: METHYLERGONOVINE 0.2 MG/ML 1 ML AMP IM PRN (02:22)
[2020-11-07] MEDS ORDERED: AMPICILLIN 2,000 MG in SODIUM CHLORIDE 0.9% 100 ML IVPB ONE (02:30)
[2020-11-07] MEDS ORDERED: OXYTOCIN 30 UNITS/500 ML NS 30 UNIT in SALINE 1 500ML.BAG IV SCH ×2 (02:30→03:45)
[2020-11-07] MEDS ORDERED: LACTATED RINGERS 1,000 ML IV SCH (02:30)
[2020-11-07 02:42] LABS: Basophils % (A) 0 %; Eosinophils # (A) 0.1 k/uL (0-0.7); Eosinophils % (A) 1 %; HCT 33.5 % (34.0-46.0); HGB 11.4 gm/dL (11.4-16.0); Lymphocytes % (A) 19 %; MCH 27.4 pg (25.0-35.0); MCV 80.7 fL (80.0-100.0); Mean Platelet Volume 8.5; Monocytes # (A) 0.7 k/uL (0-1.0); Monocytes % (A) 6 %; Neutrophils # (A) 7.7 k/uL (1.3-7.7); Neutrophils % (A) 72 %; Platelet Count 138 k/uL (150-450); Poikilocytosis Slight; RBC 4.15 m/uL (3.80-5.40); RDW 14.5 % (11.5-15.5); WBC 10.7 k/uL (3.8-10.6)
[2020-11-07] MEDS ORDERED: BUTORPHANOL 1 MG/ML 1 ML VIAL IV PRN (02:47)
--- NOTE | 2020-11-07 03:04 | P.HPOB ---
History of Present Illness H&P Date: 11/07/20 Chief Complaint: Leaking fluid This patient is a pleasant 20-year-old 2 para 1 female estimated date of confinement 11/19/2020 estimated gestational age 38-2/7 weeks who presents to labor and delivery with complaints of gush of fluid earlier this evening and some contractions. Patient's found to be grossly ruptured and in early labor. Patient's care is per Dr. Gerber appears to be complicated by small for gestational age. She also has a history of a positive group B strep urine culture but negative group B strep vaginal swab. Patient does have a history of delivery at 34 weeks and has been on medication injections. She also did receive some progesterone injections earlier in the . Review of Systems Genitourinary: Reports Menstruation: Reports amenorrhea Past Medical History Past Medical History: Asthma History of Any Multi-Drug Resistant Organisms: None Reported Past Surgical History: Appendectomy Past Anesthesia/Blood Transfusion Reactions: No Reported Reaction Past Psychological History: No Psychological Hx Reported Smoking Status: Never smoker Past Alcohol Use History: None Reported Past Drug Use History: Marijuana - Past Family History Mother Additional Family Medical History / Comment(s): gestational diabetes Medications and Allergies Allergies Allergy/AdvReac Type Severity Reaction Status Date / Time latex Allergy Rash/Hives Verified 11/07/20 01:38 adhesive tape AdvReac Rash/Hives Verified 11/07/20 01:38 Exam Vital Signs Temp Pulse Resp BP Pulse Ox 11/07/20 02:37 97.5 F L 68 18 109/58 98 Intake and Output 11/06/20 11/06/20 11/07/20 14:59 22:59 06:59 Other: Weight 66.678 kg Results Comments: Patient's blood type is Rh+. Result Diagrams: 11/07/20 02:25 Abnormal Lab Results - Last 24 Hours (Table) 11/07/20 Range/Units 02:25 WBC 10.7 H (3.8-10.6) k/uL Hct 33.5 L (34.0-46.0) % Plt Count 138 L (150-450) k/uL Assessment and Plan Assessment: This is a pleasant 20-year-old 2 para 1 female 38-2/7 weeks gestation who is admitted to labor and delivery with spontaneous rupture membranes early labor. Patient is a history of positive group B strep urine culture and therefore was given IV antibiotics. Anticipate vaginal delivery. (1) 38 weeks gestation of Current Visit: Yes Status: Acute Code(s): Z3A.38 - 38 WEEKS GESTATION OF SNOMED Code(s): 80261188 (2) Spontaneous rupture of amniotic membranes Current Visit: Yes Status: Acute Code(s): KOW3819 - SNOMED Code(s): 169 113341 (3) History of GBS (group B streptococcus) UTI, currently Current Visit: Yes Status: Acute Code(s): O09.899 - SUPERVISION OF OTHER HIGH RISK PREGNANCIES, UNSP TRIMESTER; Z87.440 - PERSONAL HISTORY OF URINARY (TRACT) INFECTIONS SNOMED Code(s): 6733186947861
--- NOTE | 2020-11-07 03:31 | P.PROBDLV ---
Vaginal Delivery Note - . Vaginal Delivery Note: Normal spontaneous vaginal delivery viable male infant Apgars 8 and 9 delivery time was 0322 hrs. Please see dictated H&P for intimate details of this patient's admission. Brief summary this is a pleasant 20-year-old 2 para 1 female 38-2/7 weeks gestation admitted to labor and delivery spontaneous rupture membranes in early labor. Patient is given IV antibiotics due to positive group B strep urine culture previously. Labor progresses quickly she does receive half a dose of Stadol for pain control. Patient gets to complete and pushes approximately 3 contractions. Patient pushes the head to the perineum and the posterior perineum is supported. Controlled delivery of infant's head over the intact perineum. Mouth and nares are bulb suctioned. There is a nuchal cord which patient continues to push and delivered through. This is a vigorous viable male Apgars are 8 and 9 delivery time was 0322 hrs. has spontaneous respiration and good cry and grossly appears normal. After delivery of the infant the umbilical cord is doubly clamped and cut appears to be trivascular. Placenta was delivered spontaneously intact. Estimated blood loss is 100 mL. There are no lacerations no repairs required. Infant and mother stable delivery room. All counts correct 3.
[2020-11-07] MEDS ORDERED: diphenhydrAMINE 25 MG CAP PO PRN (03:32)
[2020-11-07] MEDS ORDERED: HYDROCORTISONE 2.5% RECTAL CREAM 30 GM TUBE RECTAL PRN (03:32)
[2020-11-07] MEDS ORDERED: diphenhydrAMINE 50 MG/ML 1 ML VIAL IVP PRN (03:32)
[2020-11-07] MEDS ORDERED: ZOLPIDEM 5 MG TAB PO PRN (03:32)
[2020-11-07] MEDS ORDERED: LANOLIN CREAM 5 GM TUBE TOPICAL PRN (03:32)
[2020-11-07] MEDS ORDERED: SENNOSIDES-DOCUSATE SODIUM 1 EACH TAB PO PRN (03:32)
[2020-11-07] MEDS ORDERED: SIMETHICONE 80 MG CHEWABLE PO PRN (03:32)
[2020-11-07] MEDS ORDERED: BENZOCAINE/MENTHOL SPRAY 1 GM/SPRAY AEROSOL TOPICAL PRN (03:32)
[2020-11-07] MEDS ORDERED: bisacodyL 10 MG SUPP RECTAL PRN (03:32)
[2020-11-07] MEDS: IBUPROFEN 600 MG TAB PO PRN ×2 (03:41→19:03)
[2020-11-07] MEDS: ACETAMINOPHEN TAB 325 MG TAB PO PRN ×3 (05:00→20:16)
[2020-11-07] MEDS ORDERED: AMPICILLIN 1,000 MG in SODIUM CHLORIDE 0.9% 50 ML IVPB SCH (06:30)
[2020-11-08] MEDS: IBUPROFEN 600 MG TAB PO PRN (02:07)
[2020-11-08 06:04] LABS: Basophils % (A) 1 %; Eosinophils # (A) 0.1 k/uL (0-0.7); Eosinophils % (A) 1 %; HCT 30.8 % (34.0-46.0); HGB 10.1 gm/dL (11.4-16.0); Hypochromasia Slight; Lymphocytes # (A) 1.5 k/uL (1.0-4.8); Lymphocytes % (A) 22 %; MCHC 32.6 g/dL (31.0-37.0); MCV 82.9 fL (80.0-100.0); Mean Platelet Volume 8.9; Monocytes # (A) 0.4 k/uL (0-1.0); Monocytes % (A) 7 %; Neutrophils # (A) 4.6 k/uL (1.3-7.7); Neutrophils % (A) 69 %; Platelet Count 135 k/uL (150-450); RBC 3.72 m/uL (3.80-5.40); RDW 14.6 % (11.5-15.5); WBC 6.7 k/uL (3.8-10.6)
--- NOTE | 2020-11-08 08:41 | P.DS ---
Providers Date of admission: 11/07/20 02:12 Expected date of discharge: 11/08/20 Attending physician: Su Gerber Primary care physician: Stated None Hospital Course: This is a 20-year-old female 2 para 1 at 38-2/7 weeks who presented with spontaneous rupture of membranes. She delivered vaginally a viable male infant on 11/07/2020 with scores of 8 at 1 minute and 9 at 5 minutes and infant weight of 7 lbs. 2 oz. Her course has been uncomplicated. Lochia is decreasing. She is bottle feeding but would like to pump her breast milk. Pain is fairly well controlled. Vital signs are stable. Abdomen is soft with fundus firm and nontender. Extremities show negative Homans. Impression is status post vaginal delivery day #1. Plan is to discharge home later today as long as baby is able to go. Routine instructions are given. She is advised follow-up in the office in 6 weeks for check. She will be given a prescription for ibuprofen and a breast pump. She is advised to call the office if she has any further questions or concerns prior to her appointment time. Procedures: Spontaneous vaginal delivery of a viable male infant on 11/07/2020 Patient Condition at Discharge: Stable Plan - Discharge Summary New Discharge Prescriptions: New Ibuprofen [Motrin] 600 mg PO Q6H PRN #60 tab PRN Reason: Pain Discharge Medication List Ibuprofen [Motrin] 600 mg PO Q6H PRN #60 tab 11/08/20 [Rx] Follow up Appointment(s)/Referral(s): Su Gerber DO [Doctor of Osteopathic Medicine] - 1 Week Activity/Diet/Wound Care/Special Instructions: Instructions 1. Do not begin any exercise program for 3 weeks. 2. Do not resume sexual relations for 3 weeks or longer if uncomfortable. 3. You may take tub baths or showers at any time. 4. You may use tampons if desired after 3 weeks. 5. Keep the area of episiotomy (stitches) clean and dry. 6. If you are not nursing, wear a good fitting, supportive bra during the day and limit fluid intake for at least 1 week to prevent breast engorgement. 7. Call the office, [phone], within the next week to make appointment for your 6 week checkup if it has not already been made. 8. Report any of the following occurrences to the doctor promptly: a. Heavy, excessive bleeding b. Chills, fever c. Burning or frequency of urination d. Pain or redness and breasts if nursing e. Increasing pain or swelling in episiotomy (stitches). In addition to the above instructions, the following additional should be followed: 1. No heavy lifting or straining (exercising) until after 6 week checkup. 2. Keep abdominal incision clean and dry: You may wear a dressing if more comfortable. 3. Make office appointment for 10 days after going home or as instructed by her doctor. Discharge Disposition: HOME SELF-CARE
[2020-11-08 16:20] VITALS: RESP 16
[2020-11-09 08:42] VITALS: BP 93/65; PULSE 60; TEMP 97.7
== END 2020-11-09 10:56 | disposition home or self-care (01) | DRG 807 ==
LOC: FBPOP 01:30 → 4FBP 02:12
PROVIDERS: ADMIT Obstetrics & Gynecology; ATTEND Obstetrics & Gynecology
PROC: 10E0XZZ Delivery of Products of Conception, External Approach (ICD-10-PCS; principal; 2020-11-07)
DX: O69.81X0 Labor and delivery complicated by cord around neck, without compression, not applicable or unspecified (principal); Z37.0 Single live birth; O99.52 Diseases of the respiratory system complicating childbirth; J45.909 Unspecified asthma, uncomplicated; Z3A.38 38 weeks gestation of pregnancy
CPT/HCPCS: 59025; 84112; 85025; 86850; 86900; 86901; 99213

== ENCOUNTER 2021-06-12 05:27 | Emergency (ER) | payer OTHER ==
[2021-06-12] MEDS ORDERED: dexAMETHasone 2 MG TAB PO STA (05:44)
[2021-06-12] MEDS ORDERED: ACETAMINOPHEN TAB 500 MG TAB PO STA (05:44)
[2021-06-12] MEDS ORDERED: IPRATROPIUM-ALBUTEROL 3 ML NEB INHALATION STA (05:44)
--- NOTE | 2021-06-12 05:45 | ED ---
SOB HPI - General Source: patient, RN notes reviewed, old records reviewed Mode of arrival: ambulatory Limitations: no limitations - History of Present Illness MD Complaint: shortness of breath -: hour(s) Radiation: back Severity: mild Severity scale (1-10): 3 Quality: aching Consistency: constant Improves With: nothing Worsens With: nothing Known History Of: COPD Context: recent URI, anxiety Associated Symptoms: denies other symptoms Treatments Prior to Arrival: none <Darell Barbour - Last Filed: 06/12/21 07:23> <Lyric Williamson - Last Filed: 06/13/21 00:14> - General Chief Complaint: Shortness of Breath Stated Complaint: Asthma Time Seen by Provider: 06/12/21 05:37 - History of Present Illness Initial Comments: This is a 20-year-old female for evaluation patient thinks she is about 4-5 weeks with positive test recent diagnosis of urinary tract infection. Patient states her main complaint today though is cough and congestion runny nose she states she gets this multiple times here denies fever coronavirus states is just her normal asthma exacerbation. Patient denying any other complaints. She has no medical history travel history or known sick contacts (Darell Barbour) - Related Data Previous Rx's Medication Instructions Recorded Ibuprofen [Motrin] 600 mg PO Q6H PRN #60 tab 11/08/20 Cephalexin [Keflex] 500 mg PO Q12HR 1 Days #14 cap 06/12/21 Allergies Allergy/AdvReac Type Severity Reaction Status Date / Time latex Allergy Rash/Hives Verified 06/12/21 05:32 adhesive tape AdvReac Rash/Hives Verified 06/12/21 05:32 Review of Systems ROS Other: All systems not noted in ROS Statement are negative. <Darell Barbour - Last Filed: 06/12/21 07:23> ROS Other: All systems not noted in ROS Statement are negative. <Lyric Williamson - Last Filed: 06/13/21 00:14> ROS Statement: Those systems with pertinent positive or pertinent negative responses have been documented in the HPI. Past Medical History Past Medical History: Asthma History of Any Multi-Drug Resistant Organisms: None Reported Past Surgical History: Appendectomy Past Anesthesia/Blood Transfusion Reactions: No Reported Reaction Past Psychological History: No Psychological Hx Reported Smoking Status: Never smoker Past Alcohol Use History: None Reported Past Drug Use History: Marijuana - Past Family History Mother Additional Family Medical History / Comment(s): gestational diabetes <Darell Barbour - Last Filed: 06/12/21 07:23> General Exam Limitations: no limitations General appearance: alert, in no apparent distress Head exam: Present: atraumatic, normocephalic, normal inspection Eye exam: Present: normal appearance, PERRL, EOMI. Absent: scleral icterus, conjunctival injection, periorbital swelling ENT exam: Present: normal exam, mucous membranes moist Neck exam: Present: normal inspection. Absent: tenderness, meningismus, lymphadenopathy Respiratory exam: Present: normal lung sounds bilaterally. Absent: respiratory distress, wheezes, rales, rhonchi, stridor Cardiovascular Exam: Present: regular rate, normal rhythm, normal heart sounds. Absent: systolic murmur, diastolic murmur, rubs, gallop, clicks GI/Abdominal exam: Present: soft, normal bowel sounds. Absent: distended, tenderness, guarding, rebound, rigid Extremities exam: Present: normal inspection, full ROM, normal capillary refill. Absent: tenderness, pedal edema, joint swelling, calf tenderness Back exam: Present: normal inspection Neurological exam: Present: alert, oriented X3, CN II-XII intact Psychiatric exam: Present: normal affect, normal mood Skin exam: Present: warm, dry, intact, normal color. Absent: rash <Darell Barbour - Last Filed: 06/12/21 07:23> Course <Darell Barbour - Last Filed: 06/12/21 07:23> Vital Signs 06/12/21 06/12/21 06/12/21 05:29 05:39 06:15 Temperature 98 F Pulse Rate 97 110 H Respiratory 18 15 Rate Blood Pressure 92/60 O2 Sat by Pulse 98 Oximetry 06/12/21 06/12/21 06/12/21 06:31 06:35 08:21 Temperature 98.1 F 98.0 F Pulse Rate 94 105 H 80 Respiratory 16 18 Rate Blood Pressure 102/71 99/62 O2 Sat by Pulse 97 Oximetry - Reevaluation(s) Reevaluation #1: 06/12/21 07:24 Record is reviewed (Darell Barbour) Reevaluation #2: 06/12/21 07:24 Reevaluation patient's breathing is improved but at this time she is complaining of severe abdominal pain with and is concerned for possibility of problems with (Darell Barbour) Medical Decision Making - Radiology Data Radiology results: report reviewed (US pelvis is pending), image reviewed <Darell Barbour - Last Filed: 06/12/21 07:23> <Lyric Williamson - Last Filed: 06/13/21 00:14> - Medical Decision Making Patient signed out to me pending urine and ultrasound. Results discussed with the patient. Will be placed on antibiotics for UTI. Needs to follow up with OBGYN for establishments of care. Return for any new or worsening symptoms. (Lyric Williamson) - Lab Data Lab Results 06/12/21 06/12/21 Range/Units 07:25 07:25 Urine Color Light Yellow Urine Appearance Cloudy H (Clear) Urine pH 6.5 (5.0-8.0) Ur Specific [place] 1.005 (1.001-1.035) Urine Protein Negative (Negative) Urine Glucose (UA) Negative (Negative) Urine Ketones Negative (Negative) Urine Blood Negative (Negative) Urine Nitrite Negative (Negative) Urine Bilirubin Negative (Negative) Urine Urobilinogen <2.0 (<2.0) mg/dL Ur Leukocyte Esterase Small H (Negative) Urine RBC 1 (0-5) /hpf Urine WBC 8 H (0-5) /hpf Ur Squamous Epith Cells 15 H (0-4) /hpf Amorphous Sediment Rare H (None) /hpf Urine Bacteria Rare H (None) /hpf Urine HCG, Qual Detected (Not Detectd) Disposition <Darell Barbour - Last Filed: 06/12/21 07:23> Is patient prescribed a controlled substance at d/c from ED?: No Time of Disposition: 09:01 <Lyric Williamson - Last Filed: 06/13/21 00:14> Clinical Impression: First trimester , Asthma exacerbation Disposition: HOME SELF-CARE Condition: Stable Instructions (If sedation given, give patient instructions): (ED), Asthma (ED) Additional Instructions: Please follow-up with your OB for the remainder of your care. Return to the emergency room for any new or worsening symptoms Prescriptions: Cephalexin [Keflex] 500 mg PO Q12HR 1 Days #14 cap Referrals: Sarita Corado MD [Primary Care Provider] - 1-2 days
[2021-06-12 07:42] LABS: Amorphous Sediment,Urine Rare /hpf; Appearance,Urine Cloudy (Clear); Bacteria,Urine Rare /hpf; Bilirubin,Urine Negative (Negative); Blood,Urine Negative (Negative); Color,Urine Light Yellow; Glucose,Urine (UA) Negative (Negative); Ketones,Urine Negative (Negative); Leukocyte Esterase,Urine Small (Negative); Nitrite,Urine Negative (Negative); PH, Urine 6.5 (5.0-8.0); Protein,Urine Negative (Negative); RBC,Urine 1 /hpf (0-5); Specific Gravity,Urine 1.005 (1.001-1.035); Squamous Epithelial Cell,Urine 15 /hpf (0-4); Urobilinogen,Urine <2.0 mg/dL (<2.0); WBC,Urine 8 /hpf (0-5)
[2021-06-12 08:22] VITALS: BP 99/62; PULSE 80; RESP 18; TEMP 98
--- NOTE | 2021-06-12 08:41 | US ---
EXAMINATION TYPE: Transabdominal DATE OF EXAM: 06/12/2021 8:17 AM COMPARISON: NONE CLINICAL HISTORY: pain. Patient states she only has small amount of pain EXAM PERFORMED: Transabdominal (TA) EXAM MEASUREMENTS: GESTATIONAL AGE / DATING Physician Established: Not yet established Dates by LMP: LMP unknown Dates by First Scan: No previous this is first scan Dates by Current Scan for: (5 weeks/6 days) EDC: 02/06/2022 MATERNAL ANATOMY Uterus: 9.4x8.2x5.8cm Right Ovary: 3.8x1.9x2.3cm Left Ovary: 2.3x1.7x1.9cm Post CDS / Adnexa: WNL Presence of free fluid: No Presence of corpus luteal cyst: 1.3x0.9x1.1cm Left ovary. Presence of subchorionic bleed: No GESTATION / SURVEY CRL: 0.31cm (5 weeks/6 days) Yolk Sac (normal less than 6mm): 3mm Heart Rate: 90-140 bpm Rhythm: Normal IUP: Viable IUP Date of LMP: Unknown Beta HcG (if available): Not available at this time IMPRESSION: Single viable intrauterine .
[2021-06-12] MEDS ORDERED: CEPHALEXIN 500 MG CAP PO STA (08:59)
== END 2021-06-12 09:20 | disposition home or self-care (01) ==
LOC: EC 05:27
DX: O99.511 Diseases of the respiratory system complicating pregnancy, first trimester (principal); J45.901 Unspecified asthma with (acute) exacerbation; Z3A.01 Less than 8 weeks gestation of pregnancy
CPT/HCPCS: 99285; 94640; 81001; 81025; 76801; J8540

== ENCOUNTER 2021-10-07 12:51 | Emergency (ER) | payer OTHER ==
[2021-10-07 15:19] LABS: Appearance,Urine Cloudy (Clear); Bacteria,Urine Rare /hpf; Bilirubin,Urine Negative (Negative); Blood,Urine Negative (Negative); Color,Urine Yellow; Glucose,Urine (UA) Negative (Negative); Ketones,Urine Negative (Negative); Leukocyte Esterase,Urine Large (Negative); Mucus,Urine Rare /hpf; Nitrite,Urine Negative (Negative); PH, Urine 6.5 (5.0-8.0); Protein,Urine Trace (Negative); RBC,Urine 1 /hpf (0-5); Specific Gravity,Urine 1.024 (1.001-1.035); Squamous Epithelial Cell,Urine 19 /hpf (0-4); Urobilinogen,Urine <2.0 mg/dL (<2.0); WBC,Urine 12 /hpf (0-5)
[2021-10-07] MEDS ORDERED: ACETAMINOPHEN TAB 325 MG TAB PO STA (17:22)
[2021-10-07] MEDS ORDERED: CEPHALEXIN 500 MG CAP PO STA (17:24)
[2021-10-07 18:03] LABS: Basophils # (A) 0.1 k/uL (0-0.2); Basophils % (A) 1 %; Eosinophils # (A) 0.1 k/uL (0-0.7); Eosinophils % (A) 1 %; HCT 29.3 % (34.0-46.0); HGB 9.7 gm/dL (11.4-16.0); Lymphocytes # (A) 0.5 k/uL (1.0-4.8); Lymphocytes % (A) 8 %; MCH 28.8 pg (25.0-35.0); MCHC 33.3 g/dL (31.0-37.0); MCV 86.7 fL (80.0-100.0); Monocytes # (A) 0.4 k/uL (0-1.0); Monocytes % (A) 6 %; Neutrophils # (A) 5.7 k/uL (1.3-7.7); Neutrophils % (A) 83 %; Platelet Count 188 k/uL (150-450); RBC 3.38 m/uL (3.80-5.40); RDW 13.4 % (11.5-15.5); WBC 6.9 k/uL (3.8-10.6)
[2021-10-07 18:15] LABS: ALT 8 U/L (4-34); AST 18 U/L (14-36); African American GFR (CKD) >90 (>60 ml/min/1.73 sqM); Albumin 3.5 g/dL (3.5-5.0); Alkaline Phosphatase 66 U/L (38-126); Anion Gap 8 mmol/L; Blood Urea Nitrogen 4 mg/dL (7-17); Calcium 8.4 mg/dL (8.4-10.2); Carbon Dioxide 21 mmol/L (22-30); Chloride 103 mmol/L (98-107); Glucose 79 mg/dL (74-99); Non-African American GFR(CKD) >90 (>60 ml/min/1.73 sqM); Potassium 3.7 mmol/L (3.5-5.1); Sodium 132 mmol/L (137-145); Total Protein 6.8 g/dL (6.3-8.2)
[2021-10-07] MEDS ORDERED: OSELTAMIVIR 75 MG CAP PO STA (18:50)
--- NOTE | 2021-10-07 19:06 | ED ---
General Adult HPI - General Chief complaint: Nausea/Vomiting/Diarrhea Stated complaint: 22wks preg, no appetite, body aches Time Seen by Provider: 10/07/21 17:10 Source: patient Mode of arrival: ambulatory Limitations: no limitations - History of Present Illness Initial comments: Patient is a 20-year-old female currently 22 weeks presenting with chief complaint of body aches. Symptoms have been present for about one day and are accompanied by congestion and 1 episode of vomiting. Patient states that over the last 3 days she has been increasingly congested, today when she woke up feeling achy she attempted to drink a lot of water, which causes her to have one episode of vomiting. She is not nauseous. No abdominal or pelvic pain or vag inal bleeding or discharge. No diarrhea or constipation. No hematochezia or hematemesis or melena. She has not taken supportive treatment such as Tylenol at home. She has not been tested for Covid or influenza. She denies chest pain, shortness of breath, cough, fever, chills, sore throat, ear pain, dysphagia, headache, vision or hearing changes, dizziness. - Related Data Home Medications Medication Instructions Recorded Confirmed Acetaminophen Tab [Tylenol Tab] 1,000 mg PO Q6HR PRN 10/07/21 10/07/21 Hydroxyprogesterone Caproat 250 mg IM TU 10/07/21 10/07/21 250mg/Ml Injection Previous Rx's Medication Instructions Recorded Cephalexin [Keflex] 500 mg PO Q12HR 5 Days #9 cap 10/07/21 Oseltamivir Phosphate 75 mg PO BID 5 Days #9 capsule 10/07/21 Allergies Allergy/AdvReac Type Severity Reaction Status Date / Time latex Allergy Rash/Hives Verified 10/07/21 18:20 adhesive tape AdvReac Rash/Hives Verified 10/07/21 18:20 Review of Systems ROS Statement: Those systems with pertinent positive or pertinent negative responses have been documented in the HPI. ROS Other: All systems not noted in ROS Statement are negative. Past Medical History Past Medical History: Asthma History of Any Multi-Drug Resistant Organisms: None Reported Past Surgical History: Appendectomy Past Anesthesia/Blood Transfusion Reactions: No Reported Reaction Past Psychological History: Anxiety Smoking Status: Never smoker Past Alcohol Use History: None Reported Past Drug Use History: None Reported, Marijuana - Past Family History Mother Additional Family Medical History / Comment(s): gestational diabetes General Exam Limitations: no limitations General appearance: alert, in no apparent distress Head exam: Present: atraumatic, normocephalic, normal inspection Eye exam: Present: normal appearance, EOMI. Absent: scleral icterus ENT exam: Present: normal exam, mucous membranes moist Neck exam: Present: normal inspection Respiratory exam: Present: normal lung sounds bilaterally. Absent: respiratory distress, wheezes, rales, rhonchi, stridor Cardiovascular Exam: Present: regular rate, normal rhythm, normal heart sounds. Absent: systolic murmur, diastolic murmur, rubs, gallop, clicks Neurological exam: Present: alert, oriented X3, CN II-XII intact Psychiatric exam: Present: normal affect, normal mood Skin exam: Present: warm, dry, intact, normal color. Absent: rash Course Vital Signs 10/07/21 10/07/21 10/07/21 13:49 17:48 19:10 Temperature 98 F 100.9 F H 99.2 F Pulse Rate 118 H 100 Respiratory 18 18 Rate Blood Pressure 101/58 110/78 O2 Sat by Pulse 100 98 Oximetry 10/07/21 20:27 Temperature 98.7 F Pulse Rate 77 Respiratory 22 Rate Blood Pressure 127/87 O2 Sat by Pulse 97 Oximetry Medical Decision Making - Medical Decision Making Patient is a 20-year-old female currently 22 weeks presenting with chief complaint of body aches and congestion. Patient states that body aches began yesterday and congestion has been going on for the last 3 days. She had one episode of emesis this morning after drinking a large quantity of water. She denies any pelvic pain, vaginal bleeding, fever, chills, chest pain, shortness of breath, cough. Exam is unremarkable. heart rate is 160. Testing is remarkable for influenza A. Patient received Tamiflu 75 mg. Urine is also positive for leukocytes and WBCs. Patient states that she is not having any dysuria, hematuria, urgency, frequency, we will treat asymptomatic bacteriuria with Keflex 500 mg. Patient will be sent home with prescription for Tamiflu twice a day X 5 days and Keflex 500 mg twice a day X 5 days. Continue taking Tylenol for fever. Do not take NSAIDs. Educated the patient on the findings and answered all questions. I provided her with strict return parameters. Report to ER with any worsening symptoms. Patient conveyed verbal understanding and agreed to the plan. - Lab Data Result diagrams: 10/07/21 17:45 10/07/21 17:45 Lab Results 10/07/21 10/07/21 10/07/21 Range/Units 14:14 17:45 17:45 WBC 6.9 (3.8-10.6) k/uL RBC 3.38 L (3.80-5.40) m/uL Hgb 9.7 L (11.4-16.0) gm/dL Hct 29.3 L (34.0-46.0) % MCV 86.7 (80.0-100.0) fL MCH 28.8 (25.0-35.0) pg MCHC 33.3 (31.0-37.0) g/dL RDW 13.4 (11.5-15.5) % Plt Count 188 (150-450) k/uL MPV 8.0 Neutrophils % 83 % Lymphocytes % 8 % Monocytes % 6 % Eosinophils % 1 % Basophils % 1 % Neutrophils # 5.7 (1.3-7.7) k/uL Lymphocytes # 0.5 L (1.0-4.8) k/uL Monocytes # 0.4 (0-1.0) k/uL Eosinophils # 0.1 (0-0.7) k/uL Basophils # 0.1 (0-0.2) k/uL Sodium 132 L (137-145) mmol/L Potassium 3.7 (3.5-5.1) mmol/L Chloride 103 (98-107) mmol/L Carbon Dioxide 21 L (22-30) mmol/L Anion Gap 8 mmol/L BUN 4 L (7-17) mg/dL Creatinine 0.52 (0.52-1.04) mg/dL Est GFR (CKD-EPI)AfAm >90 (>60 ml/min/1.73 sqM) Est GFR (CKD-EPI)NonAf >90 (>60 ml/min/1.73 sqM) Glucose 79 (74-99) mg/dL Calcium 8.4 (8.4-10.2) mg/dL Total Bilirubin 1.0 (0.2-1.3) mg/dL AST 18 (14-36) U/L ALT 8 (4-34) U/L Alkaline Phosphatase 66 (38-126) U/L Total Protein 6.8 (6.3-8.2) g/dL Albumin 3.5 (3.5-5.0) g/dL Urine Color Yellow Urine Appearance Cloudy H (Clear) Urine pH 6.5 (5.0-8.0) Ur Specific [place] 1.024 (1.001-1.035) Urine Protein Trace H (Negative) Urine Glucose (UA) Negative (Negative) Urine Ketones Negative (Negative) Urine Blood Negative (Negative) Urine Nitrite Negative (Negative) Urine Bilirubin Negative (Negative) Urine Urobilinogen <2.0 (<2.0) mg/dL Ur Leukocyte Esterase Large H (Negative) Urine RBC 1 (0-5) /hpf Urine WBC 12 H (0-5) /hpf Ur Squamous Epith Cells 19 H (0-4) /hpf Urine Bacteria Rare H (None) /hpf Urine Mucus Rare H (None) /hpf Coronavirus (PCR) (Not Detectd) Influenza Type A RNA (Not Detectd) Influenza Type B (PCR) (Not Detectd) 10/07/21 10/07/21 Range/Units 17:45 17:45 WBC (3.8-10.6) k/uL RBC (3.80-5.40) m/uL Hgb (11.4-16.0) gm/dL Hct (34.0-46.0) % MCV (80.0-100.0) fL MCH (25.0-35.0) pg MCHC (31.0-37.0) g/dL RDW (11.5-15.5) % Plt Count (150-450) k/uL MPV Neutrophils % % Lymphocytes % % Monocytes % % Eosinophils % % Basophils % % Neutrophils # (1.3-7.7) k/uL Lymphocytes # (1.0-4.8) k/uL Monocytes # (0-1.0) k/uL Eosinophils # (0-0.7) k/uL Basophils # (0-0.2) k/uL Sodium (137-145) mmol/L Potassium (3.5-5.1) mmol/L Chloride (98-107) mmol/L Carbon Dioxide (22-30) mmol/L Anion Gap mmol/L BUN (7-17) mg/dL Creatinine (0.52-1.04) mg/dL Est GFR (CKD-EPI)AfAm (>60 ml/min/1.73 sqM) Est GFR (CKD-EPI)NonAf (>60 ml/min/1.73 sqM) Glucose (74-99) mg/dL Calcium (8.4-10.2) mg/dL Total Bilirubin (0.2-1.3) mg/dL AST (14-36) U/L ALT (4-34) U/L Alkaline Phosphatase (38-126) U/L Total Protein (6.3-8.2) g/dL Albumin (3.5-5.0) g/dL Urine Color Urine Appearance (Clear) Urine pH (5.0-8.0) Ur Specific [place] (1.001-1.035) Urine Protein (Negative) Urine Glucose (UA) (Negative) Urine Ketones (Negative) Urine Blood (Negative) Urine Nitrite (Negative) Urine Bilirubin (Negative) Urine Urobilinogen (<2.0) mg/dL Ur Leukocyte Esterase (Negative) Urine RBC (0-5) /hpf Urine WBC (0-5) /hpf Ur Squamous Epith Cells (0-4) /hpf Urine Bacteria (None) /hpf Urine Mucus (None) /hpf Coronavirus (PCR) Not Detected (Not Detectd) Influenza Type A RNA Detected H (Not Detectd) Influenza Type B (PCR) Not Detected (Not Detectd) Disposition Clinical Impression: Influenza A Disposition: HOME SELF-CARE Condition: Good Instructions (If sedation given, give patient instructions): Influenza (DC) Additional Instructions: Take medication as prescribed. Follow-up with [facility] this week. Report back to ER if any worsening symptoms, including but not limited to fever, chills, nausea, vomiting, chest pain, shortness of breath, cough, cough productive of green or foul-smelling sputum. Prescriptions: Cephalexin [Keflex] 500 mg PO Q12HR 5 Days #9 cap Oseltamivir Phosphate 75 mg PO BID 5 Days #9 capsule Is patient prescribed a controlled substance at d/c from ED?: No Referrals: Sarita Corado MD [Primary Care Provider] - 1-2 days Time of Disposition: 20:22
[2021-10-07 20:28] VITALS: BP 127/87; PULSE 77; RESP 22; TEMP 98.7
== END 2021-10-07 20:28 | disposition home or self-care (01) ==
LOC: EC 12:51
DX: O98.512 Other viral diseases complicating pregnancy, second trimester (principal); J10.1 Influenza due to other identified influenza virus with other respiratory manifestations; Z20.822 Contact with and (suspected) exposure to COVID-19; O99.512 Diseases of the respiratory system complicating pregnancy, second trimester; J45.909 Unspecified asthma, uncomplicated; Z3A.22 22 weeks gestation of pregnancy
CPT/HCPCS: 36415; 80053; 81001; 85025; 87086; 87502; 87635; 99284

== ENCOUNTER 2021-10-12 01:36 | Emergency (ER) | payer OTHER ==
[2021-10-12 01:51] VITALS: BP 102/77; PULSE 77; RESP 16; TEMP 97.6
[2021-10-12] MEDS ORDERED: BUPIVACAINE (PF) 0.5% 30 ML VIAL SQ STA (02:22)
[2021-10-12] MEDS ORDERED: HYDROcodone/APAP 5-325MG 1 EACH TAB PO STA (02:22)
--- NOTE | 2021-10-12 02:26 | ED ---
ENT HPI - General Chief complaint: Dental/Oral Stated complaint: Dental pain Time Seen by Provider: 10/12/21 02:14 Source: patient, RN notes reviewed Mode of arrival: ambulatory Limitations: no limitations - History of Present Illness Initial comments: This is a pleasant 20-year-old female who is 23 weeks . She presents to the emergency department today complaining of right upper dental pain which is involving her for several days. She states is been off and on. Pain is unrelenting, aching, exacerbated by chewing, exacerbated by hot and cold liquids. Patient saw dentist but could not afford to get the tooth pulled. Patient denies any abdominal or pelvic pain. No vaginal bleeding or vaginal leakage. No headache, no fever or chills, no changes in vision or hearing, no sore throat or difficulty with speech, no neck pain, no chest pain or shortness of breath, no abdominal pain, no nausea or vomiting, no changes in urination or bowel movements, no numbness or tingling, no extremity pain, no skin rashes or lesions. MD complaint: tooth pain - Related Data Home Medications Medication Instructions Recorded Confirmed Acetaminophen Tab [Tylenol Tab] 1,000 mg PO Q6HR PRN 10/07/21 10/07/21 Hydroxyprogesterone Caproat 250 mg IM TU 10/07/21 10/07/21 250mg/Ml Injection Previous Rx's Medication Instructions Recorded Cephalexin [Keflex] 500 mg PO Q12HR 5 Days #9 cap 10/07/21 Oseltamivir Phosphate 75 mg PO BID 5 Days #9 capsule 10/07/21 Penicillin V Potassium [Pen Vee K] 500 mg PO QID #28 tablet 10/12/21 Allergies Allergy/AdvReac Type Severity Reaction Status Date / Time latex Allergy Rash/Hives Verified 10/12/21 01:51 adhesive tape AdvReac Rash/Hives Verified 10/12/21 01:51 Review of Systems ROS Statement: Those systems with pertinent positive or pertinent negative responses have been documented in the HPI. ROS Other: All systems not noted in ROS Statement are negative. Past Medical History Past Medical History: Asthma History of Any Multi-Drug Resistant Organisms: None Reported Past Surgical History: Appendectomy Past Anesthesia/Blood Transfusion Reactions: No Reported Reaction Past Psychological History: Anxiety Smoking Status: Never smoker Past Alcohol Use History: None Reported Past Drug Use History: None Reported, Marijuana - Past Family History Mother Additional Family Medical History / Comment(s): gestational diabetes General Exam Limitations: no limitations General appearance: alert, in distress Head exam: Present: atraumatic, normocephalic, normal inspection Eye exam: Present: normal appearance, PERRL, EOMI. Absent: scleral icterus, conjunctival injection, periorbital swelling ENT exam: Present: normal exam, normal oropharynx, mucous membranes moist, TM's normal bilaterally, normal external ear exam. Absent: mucous membranes dry Expanded Ear exam: Present: normal external inspection Mouth exam: Present: normal external inspection, tongue normal. Absent: drooling, trismus, muffled voice, tongue elevation, laceration Teeth exam: Present: dental caries (Tooth #1, dental [place], no evidence of abscess) Throat exam: normal inspection. negative: tonsillar erythema, tonsillomegaly, tonsillar exudate, R peritonsillar mass, L peritonsillar mass Neck exam: Present: normal inspection, full ROM. Absent: tenderness, meningismus, lymphadenopathy Respiratory exam: Present: normal lung sounds bilaterally. Absent: respiratory distress, wheezes, rales, rhonchi, stridor Cardiovascular Exam: Present: regular rate, normal rhythm, normal heart sounds. Absent: systolic murmur, diastolic murmur, rubs, gallop, clicks GI/Abdominal exam: Present: soft, normal bowel sounds. Absent: distended, tenderness, guarding, rebound, rigid Extremities exam: Present: normal inspection, full ROM, normal capillary refill. Absent: tenderness, pedal edema, joint swelling, calf tenderness Back exam: Present: normal inspection Neurological exam: Present: alert, oriented X3, CN II-XII intact Psychiatric exam: Present: normal affect, normal mood Skin exam: Present: warm, dry, intact, normal color. Absent: rash Course Vital Signs 10/12/21 01:48 Temperature 97.6 F Pulse Rate 77 Respiratory 16 Rate Blood Pressure 102/77 O2 Sat by Pulse 99 Oximetry Procedures - Nerve Block Consent Obtained: verbal consent Local Anesthetic Used: Marcaine 0.5% Side: right (Superior alveolar) Intraoral Nerve Block: superior alveolar, infraorbital Procedure Successful: Yes Complications: none Patient Tolerated Procedure: well, no complications Medical Decision Making - Medical Decision Making Isolated toothache to tooth #1. No evidence of infectious process. We'll cover with antibiotics until the patient can see her dentist. Tylenol with Codeine starter pack. Dental block was performed. Patient tolerated well. Released in stable condition. The case was discussed in detail with ED attending physician. Presentation, findings, treatment plan discussed in detail. Patient was told to return to the ER for any signs or symptoms worsen. Told to return immediately if any other problems arise. All questions answered. Treatment plan discussed. Patient in agreement Every effort has been made to ensure accuracy of this dictation. However, due to the limitations of electronic medical records and dictation devices, errors in charting still occur. Supervising physician was Dr. Marcelo Disposition Clinical Impression: Toothache Disposition: HOME SELF-CARE Condition: Good Instructions (If sedation given, give patient instructions): Toothache (ED) Additional Instructions: Follow-up with your regular physician as directed. Return to the ER immediately if any symptoms worsen, new symptoms arise, or any other problems develop. Call Thursday morning to make a follow-up appointment with the dentist as discussed. Is patient prescribed a controlled substance at d/c from ED?: No Referrals: Sarita Corado MD [Primary Care Provider] - 1-2 days Time of Disposition: 03:52
[2021-10-12] MEDS ORDERED: IBUPROFEN 600 MG STARTER PACK 4 TAB BTL PO STA (03:50)
[2021-10-12] MEDS ORDERED: ACET/COD 300 MG/30 MG STARTER PACK 6 TAB BTL PO STA (03:50)
== END 2021-10-12 04:08 | disposition home or self-care (01) ==
LOC: EC 01:36
DX: O26.892 Other specified pregnancy related conditions, second trimester (principal); K02.9 Dental caries, unspecified; Z3A.23 23 weeks gestation of pregnancy
CPT/HCPCS: 64400; 99283

== ENCOUNTER 2021-10-15 23:33 | Emergency (ER) | payer OTHER ==
[2021-10-15 23:50] VITALS: BP 117/80; PULSE 81; RESP 19; TEMP 98.1
[2021-10-16] MEDS ORDERED: LIDOCAINE 1% INJ 10MG/ML (5 ML VIAL-PF) SQ ONE (00:15)
[2021-10-16] MEDS ORDERED: BUPIVACAINE (PF) 0.5% 30 ML VIAL MISCELLANE STA (00:15)
--- NOTE | 2021-10-16 00:24 | ED ---
General Adult HPI - General Chief complaint: Dental/Oral Stated complaint: Dental Pain Time Seen by Provider: 10/16/21 00:10 Source: patient, RN notes reviewed, old records reviewed Mode of arrival: ambulatory - History of Present Illness Initial comments: 20-year-old female presents with 5 days of dental pain. She states she was in the emergency room on October 12 and had a dental block done. She was prescribed penicillin, Motrin and Tylenol #3 but states that is not helping her. She states she has an appointment on November 04 with her dentist. She denies any fevers, sore throat, difficulty swallowing, or nausea vomiting or diarrhea. -: days(s) (5) Location: mouth (dental ) Severity scale (1-10): 10 Quality: constant Consistency: constant Improves with: other (dental block at last visit) Associated Symptoms: denies other symptoms - Related Data Home Medications Medication Instructions Recorded Confirmed Acetaminophen Tab [Tylenol Tab] 1,000 mg PO Q6HR PRN 10/07/21 10/07/21 Hydroxyprogesterone Caproat 250 mg IM TU 10/07/21 10/07/21 250mg/Ml Injection Previous Rx's Medication Instructions Recorded Cephalexin [Keflex] 500 mg PO Q12HR 5 Days #9 cap 10/07/21 Oseltamivir Phosphate 75 mg PO BID 5 Days #9 capsule 10/07/21 Penicillin V Potassium [Pen Vee K] 500 mg PO QID #28 tablet 10/12/21 Allergies Allergy/AdvReac Type Severity Reaction Status Date / Time latex Allergy Rash/Hives Verified 10/15/21 23:49 adhesive tape AdvReac Rash/Hives Verified 10/15/21 23:49 Review of Systems ROS Statement: Those systems with pertinent positive or pertinent negative responses have been documented in the HPI. ROS Other: All systems not noted in ROS Statement are negative. Past Medical History Past Medical History: Asthma History of Any Multi-Drug Resistant Organisms: None Reported Past Surgical History: Appendectomy Past Anesthesia/Blood Transfusion Reactions: No Reported Reaction Past Psychological History: Anxiety Smoking Status: Never smoker Past Alcohol Use History: None Reported Past Drug Use History: Marijuana - Past Family History Mother Additional Family Medical History / Comment(s): gestational diabetes General Exam Limitations: no limitations General appearance: alert, in no apparent distress Head exam: Present: atraumatic Eye exam: Present: normal appearance. Absent: scleral icterus, conjunctival injection ENT exam: Present: mucous membranes moist Expanded Teeth exam: Present: fractured tooth # (Chipped tooth #1, also complaining of right lower tooth pain and left lower tooth pain both chipped; braces intact upper and lower) Neck exam: Present: normal inspection, full ROM. Absent: tenderness, meningismus Respiratory exam: Absent: respiratory distress, accessory muscle use Cardiovascular Exam: Present: regular rate Neurological exam: Present: alert, oriented X3 Psychiatric exam: Present: normal affect, normal mood Skin exam: Present: warm, dry, normal color. Absent: cyanosis, diaphoretic Course Vital Signs 10/15/21 23:47 Temperature 98.1 F Pulse Rate 81 Respiratory 19 Rate Blood Pressure 117/80 O2 Sat by Pulse 99 Oximetry Procedures - Nerve Block Consent Obtained: verbal consent Local Anesthetic Used: Lidocaine 1% Amount of anesthesia used: 2 Side: right Intraoral Nerve Block: supraperiosteal Procedure Successful: Yes Complications: none Patient Tolerated Procedure: well Medical Decision Making - Medical Decision Making Patient presents with dental pain. Was seen October 12 for the same pain and does have an appointment with her dentist on November 04. She states that the only pain relief she gets is with a dental block. Supraperiosteal dental block was performed using Marcaine and lidocaine. She was discharged home with another Tylenol 3 starter pack and directed to continue with Motrin and her penicillin as previously prescribed. Disposition Clinical Impression: Pain, dental Disposition: HOME SELF-CARE Condition: Good Instructions (If sedation given, give patient instructions): Toothache (ED) Additional Instructions: Continue Motrin and Tylenol 3 as prescribed in addition to your penicillin. Keep your appointment with dentist as scheduled November 04. Is patient prescribed a controlled substance at d/c from ED?: No Referrals: Sarita Corado MD [Primary Care Provider] - 1-2 days Time of Disposition: 00:53
[2021-10-16] MEDS ORDERED: ACET/COD 300 MG/30 MG STARTER PACK 6 TAB BTL PO STA (00:52)
== END 2021-10-16 01:03 | disposition home or self-care (01) ==
LOC: EC 23:33
DX: K08.89 Other specified disorders of teeth and supporting structures (principal); J45.909 Unspecified asthma, uncomplicated; F12.90 Cannabis use, unspecified, uncomplicated
CPT/HCPCS: 64450 ×2; 99282; J2001; 99283

== ENCOUNTER 2021-11-10 06:11 | Outpatient (CLI) | payer OTHER ==
[2021-11-10 07:09] LABS: Amorphous Sediment,Urine Moderate /hpf; Appearance,Urine Cloudy (Clear); Bacteria,Urine Rare /hpf; Bilirubin,Urine Negative (Negative); Blood,Urine Negative (Negative); Color,Urine Light Yellow; Glucose,Urine (UA) Negative (Negative); Ketones,Urine Negative (Negative); Leukocyte Esterase,Urine Large (Negative); Nitrite,Urine Negative (Negative); PH, Urine 6.5 (5.0-8.0); Protein,Urine Negative (Negative); RBC,Urine 3 /hpf (0-5); Specific Gravity,Urine 1.013 (1.001-1.035); Squamous Epithelial Cell,Urine 22 /hpf (0-4); Urobilinogen,Urine <2.0 mg/dL (<2.0); WBC,Urine 11 /hpf (0-5)
[2021-11-10 08:38] VITALS: BP 102/58; PULSE 85; RESP 16; TEMP 97.2
--- NOTE | 2021-11-10 11:02 | P.MSEPDOC ---
Presenting Problems - Arrival Data Date of Arrival on Unit: 11/10/21 Time of Arrival on Unit: 06:11 Mode of Transport: Ambulatory - Complaint OB-Reason for Admission/Chief Complaint: Signs/Symptoms UTI Comment: cramping, urgency Medical History - Information : 3 Para: 2 Term: 1 : 1 Abortions: Spontaneous or Elective: 0 Number of Living Children: 1 - Gestational Age Gestational Age by GRANT (wks/days): 27 Weeks and 2 Days - History Complications: Prior Comment: 5 month old passed of SIDS in March Review of Systems - Review of Systems Constitutional: No problems Breast: No problems ENT: No problems Cardiovascular: No problems Respiratory: No problems Gastrointestinal: No problems Genitourinary: Urgency, Increased frequency Musculoskeletal: No problems Neurological: No problems Skin: No problems Vital Signs - Temperature Temperature: 97.2 F Temperature Source: Oral - Pulse Right Pulse Rate: 85 Pulse Assessment Method: Automatic Cuff - Respirations Respiratory Rate: 16 Oxygen Delivery Method: Room Air O2 Sat by Pulse Oximetry: 98 - Blood Pressure Right Arm Blood Pressure: 102/58 Blood Pressure Mean: 72 Blood Pressure Source: Automatic Cuff Medical Screen Scoring - Cervical Exam Dilation (cm): 0 Effacement (%): 0 Station: -3 Membranes: Intact - Assessment - Baby A Baseline FHR: 120 Heart Rate - NICHD Category: Category I (Normal) Physician Notification - Physician Notified Physician Notified Date: 11/10/21 Physician Notified Time: 08:03 Physician: Alexus Marquez Order Received: Yes (discharge with instruction) - Notification Comment Comment: instructed to liberally hydrate and keep appt 6/6 Maternal Triage Index - Non-Urgent/Priority 4 Non-Urgent Priority 4: Yes Criteria Met for Priority 4: s/s UTI Disposition - Disposition OB Disposition: Triage, Discharge to home, Written follow up instructions reviewed Discharge Date: 11/10/21 Discharge Time: 08:10 I agree with the RN Medical Screening Exam: Yes Case reviewed; plan agreed upon as documented in EMR&OBIX.: Yes Diagnosis: PELVIC AND PERINEAL PAIN
== END 2021-11-10 08:10 ==
LOC: FBPOP 06:11
PROVIDERS: ATTEND Obstetrics & Gynecology
DX: O26.892 Other specified pregnancy related conditions, second trimester (principal); R10.2 Pelvic and perineal pain; Z3A.27 27 weeks gestation of pregnancy; Z87.891 Personal history of nicotine dependence; Z91.040 Latex allergy status; Z91.048 Other nonmedicinal substance allergy status
CPT/HCPCS: 81001; 87086; G0463; 99213

== ENCOUNTER → 2021-11-17 | Outpatient (CLI) | payer OTHER ==
[2021-11-17 03:46] VITALS: BP 98/53; PULSE 82; RESP 14; TEMP 97
--- NOTE | 2021-11-17 08:12 | P.MSEPDOC ---
Presenting Problems - Arrival Data Date of Arrival on Unit: 11/17/21 Time of Arrival on Unit: 01:41 Mode of Transport: Wheelchair - Complaint OB-Reason for Admission/Chief Complaint: Acute Nausea/Vomiting, Dizziness, Other Comment: lightheaded, upper abdominal cramping/pain Medical History - Information : 3 Para: 2 Term: 1 : 1 Abortions: Spontaneous or Elective: 0 Number of Living Children: 1 - Gestational Age Gestational Age by GRANT (wks/days): 28 Weeks and 2 Days - History Comment: Pt reports prior deliveries at 34 weeks and 37 weeks, has been receiving weekly progesterone shots and biweekly cervical length U/S. Review of Systems - Review of Systems Constitutional: No problems Breast: No problems ENT: No problems Cardiovascular: No problems Respiratory: No problems Gastrointestinal: Constipation Genitourinary: No problems Musculoskeletal: No problems Neurological: Dizziness Skin: No problems Vital Signs - Temperature Temperature: 97.0 F Temperature Source: Temporal Artery Scan - Pulse Pulse Oximetery Pulse Rate: 82 Pulse Assessment Method: Pulse Oximetry - Respirations Respiratory Rate: 14 Oxygen Delivery Method: Room Air O2 Sat by Pulse Oximetry: 98 - Blood Pressure Right Arm Blood Pressure: 98/53 Blood Pressure Mean: 68 Blood Pressure Source: Automatic Cuff Medical Screen Scoring - Cervical Exam Membranes: Intact - Uterine Contractions Resting: Soft to palpation - Assessment - Baby A Baseline FHR: 110 Heart Rate - NICHD Category: Category I (Normal) NST: Reactive Physician Notification - Physician Notified Physician Notified Date: 11/17/21 Physician Notified Time: 02:52 Physician: Jesus Contreras New Order Received: Yes (D/C home) - Notification Comment Comment: Dr. Contreras notified of pt's arrival to triage. POC discussed at this time. Provider aware of pt's symptoms including dizziness, lightheaded, nausea and abdominal pain/cramping; the FHR tracing and maternal VS. Pt okay to D/C home with education on the importance of hydration/diet and s/s of perterm labor. Maternal Triage Index - Maternal Triage Index Presenting for scheduled procedure w/no complaint: No - Stat/Priority 1 Stat Priority 1: No - Urgent/Priority 2 Urgent Priority 2: No - Prompt/Priority 3 Prompt Priority 3: No - Non-Urgent/Priority 4 Non-Urgent Priority 4: Yes Criteria Met for Priority 4: Pt is a with estimated GRANT 02/07/22 here at 28.2 weeks of gestation with c/o dizziness, lighteheaded, nausea and upper abdominal pain, all symptoms which started approximately 2 hours ago. Disposition - Disposition OB Disposition: Discharge to home Discharge Date: 11/17/21 Discharge Time: 03:12 I agree with the RN Medical Screening Exam: Yes Case reviewed; plan agreed upon as documented in EMR&OBIX.: Yes Diagnosis: RELATED CONDITIONS, UNSPECIFIED, THIRD TRIMESTER
== END | disposition home or self-care (01) ==
LOC: FBPOP 01:41
PROVIDERS: ATTEND Obstetrics & Gynecology
DX: O26.893 Other specified pregnancy related conditions, third trimester (principal); R10.10 Upper abdominal pain, unspecified; R42 Dizziness and giddiness; Z3A.28 28 weeks gestation of pregnancy; Z91.040 Latex allergy status; Z91.048 Other nonmedicinal substance allergy status; F17.200 Nicotine dependence, unspecified, uncomplicated
CPT/HCPCS: 59025; G0463; 99213

== ENCOUNTER 2021-12-22 13:27 | Outpatient (CLI) | payer OTHER ==
[2021-12-22 14:47] LABS: Appearance,Urine Clear (Clear); Bilirubin,Urine Negative (Negative); Blood,Urine Negative (Negative); Color,Urine Yellow; Glucose,Urine (UA) Negative (Negative); Ketones,Urine 2+ (Negative); Leukocyte Esterase,Urine Small (Negative); Mucus,Urine Rare /hpf; Nitrite,Urine Negative (Negative); Protein,Urine Negative (Negative); RBC,Urine <1 /hpf (0-5); Specific Gravity,Urine 1.009 (1.001-1.035); Squamous Epithelial Cell,Urine 5 /hpf (0-4); Urobilinogen,Urine <2.0 mg/dL (<2.0); WBC,Urine 4 /hpf (0-5)
[2021-12-22 15:55] LABS: Amphetamine Screen,Urine Not Detected (NotDetected); Barbiturate Screen,Urine Not Detected (NotDetected); Benzodiazepines Screen,Urine Not Detected (NotDetected); Cocaine Screen,Urine Not Detected (NotDetected); Methadone Screen, Urine Not Detected (NotDetected); Opiate Screen,Urine Not Detected (NotDetected); Oxycodone Screen, Urine Not Detected (NotDetected); Phencyclidine Screen,Urine Not Detected (NotDetected); Tricyclic Antidepressant,Urine Not Detected (NotDetected); Urn Cannabinoid Scrn Not Detected (NotDetected)
[2021-12-22] MEDS ORDERED: BETAMET ACET-BETAMETH SOD PHOS 6 MG/ML MDV IM SCH (16:30)
[2021-12-22 19:07] VITALS: BP 103/55; PULSE 91; RESP 16; TEMP 98.4
--- NOTE | 2021-12-23 07:39 | P.MSEPDOC ---
Presenting Problems - Arrival Data Date of Arrival on Unit: 12/22/21 Time of Arrival on Unit: 13:27 Mode of Transport: Wheelchair - Complaint OB-Reason for Admission/Chief Complaint: Pain Comment: Pt picked up from ED with complaints of contractions started around 5th. evaluated by [facility] 12/19 cervical exam then "fingertip and 60%. states firstchild was 34 weeks. second was 38ish states has several urinary tract infections and just stopped taking atibiotics for 1 a couple weeks ago. unable to remember which med. also states is currently on abx for tooth ache. boyfriend is supposed to send her the name of that med Medical History - Information : 3 Para: 3 Term: 1 : 1 Abortions: Spontaneous or Elective: 0 Number of Living Children: 1 - Gestational Age Gestational Age by GRANT (wks/days): 33 Weeks and 4 Days - History Complications: Prior Review of Systems - Review of Systems Constitutional: No problems Breast: No problems ENT: No problems Cardiovascular: No problems Respiratory: No problems Gastrointestinal: No problems Genitourinary: No problems Musculoskeletal: No problems Neurological: No problems Skin: No problems Vital Signs - Temperature Temperature: 98.4 F Temperature Source: Oral - Pulse Right Pulse Rate: 91 Pulse Assessment Method: Pulse Oximetry - Respirations Respiratory Rate: 16 Oxygen Delivery Method: Room Air O2 Sat by Pulse Oximetry: 98 - Blood Pressure Right Arm Blood Pressure: 103/55 Blood Pressure Mean: 71 Blood Pressure Source: Automatic Cuff Medical Screen Scoring - Cervical Exam Dilation (cm): 1.5 Effacement (%): 60 Membranes: Intact - Assessment - Baby A Baseline FHR: 120 Heart Rate - NICHD Category: Category I (Normal) NST: Reactive Physician Notification - Physician Notified Physician Notified Date: 12/22/21 Physician Notified Time: 15:15 Physician: Dr Contreras New Order Received: Yes (run ffn and uds) - Notification Comment Comment: 1630 Dr Contreras called in states reviewed ffn neg, uds neg. want betamethasone given. prior to discharge Maternal Triage Index - Maternal Triage Index Presenting for scheduled procedure w/no complaint: No - Stat/Priority 1 Stat Priority 1: No - Urgent/Priority 2 Urgent Priority 2: No - Prompt/Priority 3 Prompt Priority 3: Yes Criteria Met for Priority 3: 33w complaints pain no traceable contractions - Non-Urgent/Priority 4 Non-Urgent Priority 4: No - Scheduled/Requesting Priority 5 Scheduled/Requesting Priority 5: No Disposition - Disposition OB Disposition: Discharge to home Discharge Date: 12/22/21 Discharge Time: 17:00 I agree with the RN Medical Screening Exam: Yes Case reviewed; plan agreed upon as documented in EMR&OBIX.: Yes Diagnosis: FALSE LABOR BEFORE 37 COMPLETED WEEKS OF GEST, THIRD TRI (Patient presents with c/o pain/discomfort. History of PTD 34.5wks 1st and then term delivery 2nd . Appears that she transferred to Dr. Gerber at 29wks and was supposed to be on progesterone injections weekly but has not been receiving. Also has not been in office since her first visit. Did see MFM a few days ago. FFN is negative and no significant contractions, but due to history I am going to give [facility], repeat exam and [facility] 24hr. Appt in [address] Gerber.)
== END 2021-12-22 17:00 | disposition home or self-care (01) ==
LOC: FBPOP 13:27
PROVIDERS: ATTEND Obstetrics & Gynecology
DX: O47.03 False labor before 37 completed weeks of gestation, third trimester (principal); Z3A.33 33 weeks gestation of pregnancy; Z91.040 Latex allergy status; Z91.048 Other nonmedicinal substance allergy status; Z87.891 Personal history of nicotine dependence
CPT/HCPCS: 59025; 96372; 82731; 81001; 80306; 87086; G0463; J0702; 99213

== ENCOUNTER 2021-12-25 22:06 | Outpatient (CLI) | payer OTHER ==
[2021-12-25] MEDS ORDERED: LACTATED RINGERS 1,000 ML IV SCH (23:00)
[2021-12-25 23:21] LABS: Amorphous Sediment,Urine Few /hpf; Appearance,Urine Cloudy (Clear); Bilirubin,Urine Negative (Negative); Blood,Urine Negative (Negative); Color,Urine Light Yellow; Glucose,Urine (UA) Negative (Negative); Ketones,Urine Negative (Negative); Leukocyte Esterase,Urine Large (Negative); Mucus,Urine Rare /hpf; Nitrite,Urine Negative (Negative); Protein,Urine Negative (Negative); RBC,Urine 1 /hpf (0-5); Specific Gravity,Urine 1.003 (1.001-1.035); Squamous Epithelial Cell,Urine 6 /hpf (0-4); Urobilinogen,Urine <2.0 mg/dL (<2.0); WBC,Urine 24 /hpf (0-5)
[2021-12-26 04:20] VITALS: BP 117/71; PULSE 113; RESP 16; TEMP 98
--- NOTE | 2021-12-28 21:27 | P.MSEPDOC ---
Presenting Problems - Arrival Data Date of Arrival on Unit: 12/25/21 Time of Arrival on Unit: 22:00 Mode of Transport: Ambulatory - Complaint OB-Reason for Admission/Chief Complaint: Possible Onset of Labor Comment: Patient states she has been having contractions and been checked several times. yesterday she was [address] Gerber's office and c/o increased pressure, has history. of PTL 34 weeks and is seeing a Dr in [place] for PTL history Medical History - Information : 3 Para: 2 Term: 1 : 1 Abortions: Spontaneous or Elective: 0 Number of Living Children: 1 - Gestational Age Gestational Age by GRANT (wks/days): 34 Weeks and 1 Days - History Complications: Prior Review of Systems - Review of Systems Constitutional: No problems Breast: No problems ENT: No problems Cardiovascular: No problems Respiratory: No problems Gastrointestinal: No problems Genitourinary: No problems Musculoskeletal: No problems Neurological: No problems Skin: No problems Vital Signs - Temperature Temperature: 98.0 F Temperature Source: Temporal Artery Scan - Pulse Right Brachial Pulse Rate: 113 Pulse Assessment Method: Automatic Cuff - Respirations Respiratory Rate: 16 Oxygen Delivery Method: Room Air O2 Sat by Pulse Oximetry: 98 - Blood Pressure Right Arm Blood Pressure: 117/71 Blood Pressure Mean: 86 Blood Pressure Source: Automatic Cuff Medical Screen Scoring - Cervical Exam Dilation (cm): 2 Effacement (%): 60 Station: -2 Membranes: Intact - Assessment - Baby A Baseline FHR: 135 Heart Rate - NICHD Category: Category I (Normal) NST: Reactive Physician Notification - Physician Notified Physician Notified Date: 12/25/21 Physician Notified Time: 22:47 Physician: Su Gerber Order Received: Yes - Notification Comment Comment: RN spike with Dr. Gerber. RN reported that cervical exam was unchanged from. previous exam in office and was having uterine irritability. RN reported that patient. felt "off" and like her heart was racing. Patient also states she was having lower. bilateral back pain. Dr. Gerber would like for patient to receive an IV bolus of lactated. ringers and for a urinalysis to be sent. Maternal Triage Index - Maternal Triage Index Presenting for scheduled procedure w/no complaint: No - Stat/Priority 1 Stat Priority 1: No - Urgent/Priority 2 Urgent Priority 2: No - Prompt/Priority 3 Prompt Priority 3: No - Non-Urgent/Priority 4 Non-Urgent Priority 4: Yes Criteria Met for Priority 4: COmmon discomforts of , ligament pain Disposition - Disposition OB Disposition: Discharge to home Discharge Date: 12/26/21 Discharge Time: 00:15 I agree with the RN Medical Screening Exam: Yes Case reviewed; plan agreed upon as documented in EMR&OBIX.: Yes Diagnosis: FALSE LABOR BEFORE 37 COMPLETED WEEKS OF GEST, THIRD TRI
== END 2021-12-26 00:15 | disposition home or self-care (01) ==
LOC: FBPOP 22:06
PROVIDERS: ATTEND Obstetrics & Gynecology
DX: O47.03 False labor before 37 completed weeks of gestation, third trimester (principal); Z3A.34 34 weeks gestation of pregnancy; Z91.040 Latex allergy status; Z91.048 Other nonmedicinal substance allergy status; Z87.891 Personal history of nicotine dependence
CPT/HCPCS: 59025; 96360; 36415; 81001; 87086; G0463; 99214

== ENCOUNTER 2021-12-28 23:55 | Outpatient (CLI) | payer OTHER ==
[2021-12-29 01:27] VITALS: BP 119/59; PULSE 107; RESP 16; TEMP 97.9
--- NOTE | 2022-01-08 07:41 | P.MSEPDOC ---
Presenting Problems - Arrival Data Date of Arrival on Unit: 12/28/21 Time of Arrival on Unit: 23:55 Mode of Transport: Ambulatory - Complaint OB-Reason for Admission/Chief Complaint: Possible Onset of Labor, Decreased Movement Comment: Pt here with c/o contractions that have been getting stronger since 10pm today,. decreased movement throughout the day. Pt was seen in [facility] on 12/25 with c/o cxns at that. time and was dilated to 2.5cm. Denies any other complications Medical History - Information : 3 Para: 2 Term: 1 : 1 Abortions: Spontaneous or Elective: 0 Number of Living Children: 1 - Gestational Age Gestational Age by GRANT (wks/days): 34 Weeks and 4 Days - History Complications: Prior Review of Systems - Review of Systems Constitutional: No problems Breast: No problems ENT: No problems Cardiovascular: No problems Respiratory: No problems Gastrointestinal: No problems Genitourinary: No problems Musculoskeletal: No problems Neurological: No problems Skin: No problems Vital Signs - Temperature Temperature: 97.9 F Temperature Source: Temporal Artery Scan - Pulse Right Brachial Pulse Rate: 107 Pulse Assessment Method: Automatic Cuff - Respirations Respiratory Rate: 16 Oxygen Delivery Method: Room Air O2 Sat by Pulse Oximetry: 98 - Blood Pressure Right Arm Blood Pressure: 119/59 Blood Pressure Mean: 79 Blood Pressure Source: Automatic Cuff Medical Screen Scoring - Uterine Contractions Frequency From (mins): 2 Frequency To (mins): 8 Duration From (seconds): 40 Duration To (seconds): 80 Intensity: Mild Resting: Soft to palpation - Assessment - Baby A Baseline FHR: 115 Heart Rate - NICHD Category: Category I (Normal) NST: Reactive Physician Notification - Physician Notified Physician Notified Date: 12/29/21 Physician Notified Time: 00:38 Physician: Alexus Marquez New Order Received: Yes - Notification Comment Comment: Dr. Marquez in unit to review heart tone tracing. aware that patient. is jeannette but patients pain is not the same pain. Patient describes pain as bone in. pelvis , happening when the baby moves and lasting about twenty seconds. Dr. Marquez states patient may go home after r eactive NST. Maternal Triage Index - Maternal Triage Index Presenting for scheduled procedure w/no complaint: No - Stat/Priority 1 Stat Priority 1: No - Urgent/Priority 2 Urgent Priority 2: No - Prompt/Priority 3 Prompt Priority 3: Yes Criteria Met for Priority 3: c/o early labor signs 34 4/7 weeks Disposition - Disposition OB Disposition: Discharge to home Discharge Date: 12/29/21 Discharge Time: 00:48 I agree with the RN Medical Screening Exam: Yes Case reviewed; plan agreed upon as documented in EMR&OBIX.: Yes Diagnosis: DECREASED MOVEMENTS, THIRD TRIMESTER, FETUS 1
== END 2021-12-29 00:48 | disposition home or self-care (01) ==
LOC: FBPOP 23:55
PROVIDERS: ATTEND Obstetrics & Gynecology
DX: O36.8130 Decreased fetal movements, third trimester, not applicable or unspecified (principal); Z3A.34 34 weeks gestation of pregnancy; Z87.891 Personal history of nicotine dependence; Z91.040 Latex allergy status; Z91.048 Other nonmedicinal substance allergy status
CPT/HCPCS: 59025; G0463; 99213

== ENCOUNTER 2022-01-13 11:54 | Outpatient (CLI) | payer OTHER ==
[2022-01-13 13:35] VITALS: BP 115/62; PULSE 117; RESP 16; TEMP 97.3
--- NOTE | 2022-01-13 18:03 | P.MSEPDOC ---
Presenting Problems - Arrival Data Date of Arrival on Unit: 01/13/22 Time of Arrival on Unit: 11:54 Mode of Transport: Ambulatory - Complaint OB-Reason for Admission/Chief Complaint: Rule Out SROM Medical History - Information : 3 Para: 2 Term: 1 : 1 Abortions: Spontaneous or Elective: 0 Number of Living Children: 1 - Gestational Age Gestational Age by GRANT (wks/days): 36 Weeks and 5 Days - History Complications: Prior Review of Systems - Review of Systems Constitutional: No problems Breast: No problems ENT: No problems Cardiovascular: No problems Respiratory: No problems Gastrointestinal: No problems Genitourinary: No problems Musculoskeletal: No problems Neurological: No problems Skin: No problems Vital Signs - Temperature Temperature: 97.3 F Temperature Source: Temporal Artery Scan - Pulse Right Sitting Pulse Rate: 117 Pulse Assessment Method: Automatic Cuff - Respirations Respiratory Rate: 16 Oxygen Delivery Method: Room Air - Blood Pressure Right Arm Blood Pressure: 115/62 Blood Pressure Mean: 79 Blood Pressure Source: Automatic Cuff Medical Screen Scoring - Cervical Exam Dilation (cm): 3.5 Effacement (%): 70 Station: -2 Membranes: Intact - Uterine Contractions Intensity: Mild Resting: Soft to palpation - Assessment - Baby A Baseline FHR: 135 Heart Rate - NICHD Category: Category I (Normal) NST: Reactive Physician Notification - Physician Notified Physician Notified Date: 01/13/22 Physician Notified Time: 13:20 Physician: Jesus Contreras New Order Received: Yes (d/c home) Maternal Triage Index - Prompt/Priority 3 Prompt Priority 3: Yes Criteria Met for Priority 3: negative amnisure, irregular contractions with no cervical change after 1 hour Disposition - Disposition OB Disposition: Discharge to home Discharge Date: 01/13/22 Discharge Time: 13:26 I agree with the RN Medical Screening Exam: Yes Case reviewed; plan agreed upon as documented in EMR&OBIX.: Yes Diagnosis: FALSE LABOR BEFORE 37 COMPLETED WEEKS OF GEST, THIRD TRI
== END 2022-01-13 13:26 | disposition home or self-care (01) ==
LOC: FBPOP 11:54
PROVIDERS: ATTEND Obstetrics & Gynecology
DX: O47.03 False labor before 37 completed weeks of gestation, third trimester (principal); Z3A.36 36 weeks gestation of pregnancy; Z91.040 Latex allergy status; Z91.048 Other nonmedicinal substance allergy status
CPT/HCPCS: 59025; 84112; G0463; 99213

== ENCOUNTER 2022-01-18 04:16 | Outpatient (CLI) | payer OTHER ==
[2022-01-18 07:30] VITALS: BP 108/61; PULSE 79; RESP 16; TEMP 96.3
--- NOTE | 2022-01-18 08:27 | P.MSEPDOC ---
Presenting Problems - Arrival Data Date of Arrival on Unit: 01/18/22 Time of Arrival on Unit: 04:16 Mode of Transport: Ambulatory - Complaint OB-Reason for Admission/Chief Complaint: Rule Out SROM Comment: Comment: patient arrives to triage and states she started leaking clear fluid at 3am. Patient states she is no longer leaking. Patient has history of a labor at 34. weeks. Medical History - Information : 3 Para: 2 Term: 1 : 1 Abortions: Spontaneous or Elective: 0 Number of Living Children: 1 - Gestational Age Gestational Age by GRANT (wks/days): 37 Weeks and 3 Days - History Complications: Prior Review of Systems - Review of Systems Constitutional: No problems Breast: No problems ENT: No problems Cardiovascular: No problems Respiratory: No problems Gastrointestinal: No problems Genitourinary: No problems Musculoskeletal: No problems Neurological: No problems Skin: No problems Vital Signs - Temperature Temperature: 96.3 F Temperature Source: Temporal Artery Scan - Pulse Right Brachial Pulse Rate: 79 Pulse Assessment Method: Automatic Cuff - Respirations Respiratory Rate: 16 Oxygen Delivery Method: Room Air O2 Sat by Pulse Oximetry: 98 - Blood Pressure Right Arm Blood Pressure: 108/61 Blood Pressure Mean: 76 Blood Pressure Source: Automatic Cuff Medical Screen Scoring - Cervical Exam Dilation (cm): 3 Effacement (%): 80 Station: -2 Membranes: Intact - Uterine Contractions Frequency From (mins): 2 Frequency To (mins): 5 Duration From (seconds): 40 Duration To (seconds): 70 Intensity: Moderate Resting: Soft to palpation - Assessment - Baby A Baseline FHR: 120 Heart Rate - NICHD Category: Category I (Normal) NST: Reactive Physician Notification - Physician Notified Physician Notified Date: 01/18/22 Physician Notified Time: 04:49 Physician: Jesus Contreras New Order Received: Yes - Notification Comment Comment: Dr Contreras notified that patient reports to triage with complaints of leaking. fluid approximately 30 minutes prior. Patient states she is no longer leaking. Patient. is also having contractions. Cervical exam is unchanged from prior visit. Dr. contreras. states patient may be discharged with follow up information. Maternal Triage Index - Maternal Triage Index Presenting for scheduled procedure w/no complaint: No - Stat/Priority 1 Stat Priority 1: No - Urgent/Priority 2 Urgent Priority 2: No - Prompt/Priority 3 Prompt Priority 3: No - Non-Urgent/Priority 4 Non-Urgent Priority 4: Yes Criteria Met for Priority 4: >37 weeks c/o SROM Disposition - Disposition OB Disposition: Discharge to home Discharge Date: 01/18/22 Discharge Time: 04:30 I agree with the RN Medical Screening Exam: Yes Case reviewed; plan agreed upon as documented in EMR&OBIX.: Yes Diagnosis: FALSE LABOR AT OR AFTER 37 COMPLETED WEEKS OF GESTATION
== END 2022-01-18 04:30 | disposition home or self-care (01) ==
LOC: FBPOP 04:16
PROVIDERS: ATTEND Obstetrics & Gynecology
DX: O47.1 False labor at or after 37 completed weeks of gestation (principal); Z3A.37 37 weeks gestation of pregnancy; Z91.040 Latex allergy status; Z91.048 Other nonmedicinal substance allergy status; Z87.891 Personal history of nicotine dependence
CPT/HCPCS: 59025; 84112; G0463; 99213

== ENCOUNTER 2022-10-29 14:30 | Emergency (ER) | payer OTHER ==
--- NOTE | 2022-10-29 14:54 | ED ---
General Adult HPI - General Stated complaint: vomiting, flu symptoms Time Seen by Provider: 10/29/22 14:53 Source: patient, RN notes reviewed Mode of arrival: ambulatory Limitations: no limitations - History of Present Illness Initial comments: 22-year-old female presents emergency Department chief complaint of nausea vomiting diarrhea. Patient states symptoms started last night. Patient states she does have mild congestion. Patient's mother had similar symptoms. Denies any chance . - Related Data Home Medications Medication Instructions Recorded Confirmed Pnv,Calcium 72/Iron/Folic Acid 1 tab PO DAILY 12/22/21 01/18/22 [Westab Plus Tablet] Allergies Allergy/AdvReac Type Severity Reaction Status Date / Time latex Allergy Rash/Hives Verified 10/29/22 15:13 adhesive tape AdvReac Rash/Hives Verified 10/29/22 15:13 Review of Systems ROS Statement: Those systems with pertinent positive or pertinent negative responses have been documented in the HPI. ROS Other: All systems not noted in ROS Statement are negative. Past Medical History Past Medical History: Asthma History of Any Multi-Drug Resistant Organisms: None Reported Past Surgical History: Appendectomy Past Anesthesia/Blood Transfusion Reactions: No Reported Reaction Smoking Status: Never smoker - Past Family History Mother Additional Family Medical History / Comment(s): gestational diabetes General Exam - General Exam Comments Initial Comments: Visual Physical Exam Vital signs reviewed General: Well-appearing, nontoxic, no acute distress. Head: Normocephalic, atraumatic Eyes: PERRLA, EOMI ENT: Airway patent Chest: Nonlabored breathing Skin: No visual rash, normal skin tone Neuro: Alert and oriented 3 Musculoskeletal: No gross abnormalities Course Vital Signs 10/29/22 15:10 Temperature 100.3 F H Pulse Rate 99 Respiratory 20 Rate Blood Pressure 94/64 O2 Sat by Pulse 98 Oximetry Medical Decision Making - Medical Decision Making Patient left AGAINST MEDICAL ADVICE from waiting room. - Lab Data Result diagrams: 10/29/22 15:19 10/29/22 15:19 Lab Results 10/29/22 10/29/22 Range/Units 15:19 15:19 WBC 6.8 (3.8-10.6) k/uL RBC 4.55 (3.80-5.40) m/uL Hgb 13.7 (11.4-16.0) gm/dL Hct 39.3 (34.0-46.0) % MCV 86.5 (80.0-100.0) fL MCH 30.1 (25.0-35.0) pg MCHC 34.8 (31.0-37.0) g/dL RDW 12.3 (11.5-15.5) % Plt Count 185 (150-450) k/uL MPV 7.3 Neutrophils % 84 % Lymphocytes % 9 % Monocytes % 6 % Eosinophils % 1 % Basophils % 0 % Neutrophils # 5.7 (1.3-7.7) k/uL Lymphocytes # 0.6 L (1.0-4.8) k/uL Monocytes # 0.4 (0-1.0) k/uL Eosinophils # 0.1 (0-0.7) k/uL Basophils # 0.0 (0-0.2) k/uL Sodium 135 L (137-145) mmol/L Potassium 3.6 (3.5-5.1) mmol/L Chloride 100 (98-107) mmol/L Carbon Dioxide 23 (22-30) mmol/L Anion Gap 12 mmol/L BUN 12 (7-17) mg/dL Creatinine 0.65 (0.52-1.04) mg/dL Est GFR (CKD-EPI)AfAm >90 (>60 ml/min/1.73 sqM) Est GFR (CKD-EPI)NonAf >90 (>60 ml/min/1.73 sqM) Glucose 123 H (74-99) mg/dL Calcium 8.4 (8.4-10.2) mg/dL Total Bilirubin 1.1 (0.2-1.3) mg/dL AST 24 (14-36) U/L ALT 19 (4-34) U/L Alkaline Phosphatase 81 (38-126) U/L Total Protein 7.5 (6.3-8.2) g/dL Albumin 4.3 (3.5-5.0) g/dL Disposition Clinical Impression: Abdominal pain Disposition: Left Against Medical Advice Referrals: None,Stated [Primary Care Provider] - 1-2 days
[2022-10-29 15:13] VITALS: BP 94/64; PULSE 99; RESP 20; TEMP 100.3
[2022-10-29 15:59] LABS: Basophils % (A) 0 %; Eosinophils # (A) 0.1 k/uL (0-0.7); Eosinophils % (A) 1 %; HCT 39.3 % (34.0-46.0); HGB 13.7 gm/dL (11.4-16.0); Lymphocytes # (A) 0.6 k/uL (1.0-4.8); Lymphocytes % (A) 9 %; MCH 30.1 pg (25.0-35.0); MCHC 34.8 g/dL (31.0-37.0); MCV 86.5 fL (80.0-100.0); Mean Platelet Volume 7.3; Monocytes # (A) 0.4 k/uL (0-1.0); Monocytes % (A) 6 %; Neutrophils # (A) 5.7 k/uL (1.3-7.7); Neutrophils % (A) 84 %; Platelet Count 185 k/uL (150-450); RBC 4.55 m/uL (3.80-5.40); RDW 12.3 % (11.5-15.5); WBC 6.8 k/uL (3.8-10.6)
[2022-10-29 16:14] LABS: ALT 19 U/L (4-34); AST 24 U/L (14-36); African American GFR (CKD) >90 (>60 ml/min/1.73 sqM); Albumin 4.3 g/dL (3.5-5.0); Alkaline Phosphatase 81 U/L (38-126); Anion Gap 12 mmol/L; Blood Urea Nitrogen 12 mg/dL (7-17); Calcium 8.4 mg/dL (8.4-10.2); Carbon Dioxide 23 mmol/L (22-30); Chloride 100 mmol/L (98-107); Glucose 123 mg/dL (74-99); Non-African American GFR(CKD) >90 (>60 ml/min/1.73 sqM); Potassium 3.6 mmol/L (3.5-5.1); Sodium 135 mmol/L (137-145); Total Bilirubin 1.1 mg/dL (0.2-1.3); Total Protein 7.5 g/dL (6.3-8.2)
== END 2022-10-29 17:11 | disposition left against medical advice (07) ==
LOC: EC 14:30
DX: R10.9 Unspecified abdominal pain (principal); J45.909 Unspecified asthma, uncomplicated; Z91.040 Latex allergy status; Z91.09 Other allergy status, other than to drugs and biological substances; Z53.29 Procedure and treatment not carried out because of patient's decision for other reasons
CPT/HCPCS: 36415; 80053; 85025; 99283

== ENCOUNTER 2023-01-28 00:29 | Emergency (ER) | payer OTHER ==
[2023-01-28 00:32] VITALS: TEMP 97.7
[2023-01-28] MEDS ORDERED: ACETAMINOPHEN TAB 325 MG TAB PO STA (00:53)
--- NOTE | 2023-01-28 00:58 | ED ---
Female Urogenital HPI - General Chief complaint: Urogenital Stated complaint: UTI Time Seen by Provider: 01/28/23 00:31 Source: patient, RN notes reviewed, old records reviewed Mode of arrival: ambulatory Limitations: no limitations - History of Present Illness Initial comments: 22-year-old well-appearing female presents to the emergency room with dysuria that started yesterday. Patient states feels as though she has a urinary tract infection. States that she did not urinate after sexual intercourse yesterday and thinks that is the cause. States they did use a condom. Does have a history of chlamydia 3 years ago and states also wants to be checked for STI's. Patient is currently breast-feeding her 1-year-old. Denies any vaginal discharge or bleeding. No fevers, nausea vomiting or diarrhea. MD Complaint: dysuria, possible STD -: days(s) (1) Radiation: non-radiating Severity scale (1-10): 2 Quality: cramping Improves with: none Patient : No - Related Data Sexually active: Yes Home Medications Medication Instructions Recorded Confirmed Pnv,Calcium 72/Iron/Folic Acid 1 tab PO DAILY 12/22/21 01/18/22 [Westab Plus Tablet] Previous Rx's Medication Instructions Recorded Cephalexin [Keflex] 500 mg PO BID 5 Days #10 cap 01/28/23 Allergies Allergy/AdvReac Type Severity Reaction Status Date / Time latex Allergy Rash/Hives Verified 10/29/22 15:13 adhesive tape AdvReac Rash/Hives Verified 10/29/22 15:13 Review of Systems ROS Statement: Those systems with pertinent positive or pertinent negative responses have been documented in the HPI. ROS Other: All systems not noted in ROS Statement are negative. Past Medical History Past Medical History: Asthma History of Any Multi-Drug Resistant Organisms: None Reported Past Surgical History: Appendectomy Past Anesthesia/Blood Transfusion Reactions: No Reported Reaction Past Psychological History: Anxiety Smoking Status: Never smoker - Past Family History Mother Additional Family Medical History / Comment(s): gestational diabetes General Exam Limitations: no limitations General appearance: alert, in no apparent distress Head exam: Present: atraumatic, normocephalic Eye exam: Present: normal appearance. Absent: scleral icterus, conjunctival injection, periorbital swelling Neck exam: Present: full ROM. Absent: meningismus Respiratory exam: Absent: respiratory distress, accessory muscle use Cardiovascular Exam: Present: regular rate GI/Abdominal exam: Present: soft, tenderness (minimal suprapubic). Absent: distended Extremities exam: Present: full ROM, normal capillary refill. Absent: tenderness, pedal edema Back exam: Absent: tenderness, CVA tenderness (R), CVA tenderness (L) Neurological exam: Present: alert, oriented X3 Psychiatric exam: Present: normal affect, normal mood Skin exam: Present: warm, dry, normal color. Absent: cyanosis, diaphoretic, petechiae, pallor Course Vital Signs 01/28/23 01/28/23 00:30 03:19 Temperature 97.7 F Pulse Rate 78 99 Respiratory 16 17 Rate Blood Pressure 118/74 99/64 O2 Sat by Pulse 98 99 Oximetry Medical Decision Making - Medical Decision Making Was pt. sent in by a medical professional or institution (, PA, CLIENT RENEWAL SPECIALIST, urgent care, hospital, or shelter...) When possible be specific @ -No Did you speak to anyone other than the patient for history (EMS, parent, family, police, friend...)? What history was obtained from this source @ -No Did you review nursing and triage notes (agree or disagree)? Why? @ -I reviewed and agree with nursing and triage notes Were old charts reviewed (outside hosp., previous admission, EMS record, old EKG, old radiological studies, urgent care reports/EKG's, shelter records)? Report findings @ -No old charts were reviewed Differential Diagnosis (chest pain, altered mental status, abdominal pain women, abdominal pain men, vaginal bleeding, weakness, fever, dyspnea, syncope, headache, dizziness, GI bleed, back pain, seizure, CVA, palpatations, mental health, musculoskeletal)? @ -sexually transmitted infection, cystitis, pyelonephritis, this is not an all inclusive list EKG interpreted by me (3pts min.). @ -n/a X-rays interpreted by me (1pt min.). @ -None done CT interpreted by me (1pt min.). @ -None done U/S interpreted by me (1pt. min.). @ -None done What testing was considered but not performed or refused? (CT, X-rays, U/S, labs)? Why? @ -None What meds were considered but not given or refused? Why? @ -Treatment for sexual transmitted infections including Rocephin and Flagyl and Zithromax considered however patient is breast-feeding and prefers to wait for her results. Did you discuss the management of the patient with other professionals (professionals i.e. , PA, CLIENT RENEWAL SPECIALIST, lab, RT, psych nurse, school social worker, [employer], teacher, transit authority police officer, case assistant)? Give summary @ -No Was smoking cessation discussed for >3mins.? @ -No Was critical care preformed (if so, how long)? @ -No Were there social determinants of health that impacted care today? How? (Homelessness, low income, unemployed, alcoholism, drug addiction, transportation, low edu. Level, literacy, decrease access to med. care, snf, rehab)? @ -No Was there de-escalation of care discussed even if they declined (Discuss DNR or withdrawal of care, Hospice)? DNR status @ -No What co-morbidities impacted this encounter? (DM, HTN, Smoking, COPD, CAD, Cancer, CVA, ARF, Chemo, Hep., AIDS, mental health diagnosis, sleep apnea, morbid obesity)? @ -Asthma Was patient admitted / discharged? Hospital course, mention meds given and route, prescriptions, significant lab abnormalities, going to OR and other pertinent info. @ -Discharged 22-year-old well-appearing female presents to the emergency room with dysuria that started yesterday. Patient states feels as though she has a urinary tract infection. States that she did not urinate after sexual intercourse yesterday and thinks that is the cause. States they did use a condom. Does have a history of chlamydia 3 years ago and states also wants to be checked for STI's. Patient is currently breast-feeding her 1-year-old. Denies any vaginal discharge or bleeding. No fevers, nausea vomiting or diarrhea. UA shows evidence of UTI. Patient was given Keflex. Directed to follow up with the primary care doctor for reevaluation next week. Cultures were sent for STI testing. Patient states that she will check her portal for her results. I did assure her that she would be contacted if she needs treatment. I also encouraged her to continue practicing safe sex using condoms. She is agreeable to this plan of care. Case discussed with Dr. Mracelo. Undiagnosed new problem with uncertain prognosis? @ -No Drug Therapy requiring intensive monitoring for toxicity (Heparin, Nitro, Insulin, Cardizem)? @ -No Were any procedures done? @ -No Diagnosis/symptom? @ -UTI Acute, or Chronic, or Acute on Chronic? @ -Acute Uncomplicated (without systemic symptoms) or Complicated (systemic symptoms)? @ -Uncomplicated Side effects of treatment? @ -No Exacerbation, Progression, or Severe Exacerbation? @ -No Poses a threat to life or bodily function? How? (Chest pain, [place], [place], pneumonia, PE, COPD, DKA, ARF, appy, cholecystitis, CVA, Diverticulitis, Homicidal, Suicidal, threat to staff... and all critical care pts) @ -No - Lab Data Lab Results 01/28/23 01/28/23 Range/Units 01:35 01:35 Urine Color Colorless Urine Appearance Cloudy H (Clear) Urine pH 6.0 (5.0-8.0) Ur Specific [place] 1.005 (1.001-1.035) Urine Protein Negative (Negative) Urine Glucose (UA) Negative (Negative) Urine Ketones Negative (Negative) Urine Blood Negative (Negative) Urine Nitrite Negative (Negative) Urine Bilirubin Negative (Negative) Urine Urobilinogen <2.0 (<2.0) mg/dL Ur Leukocyte Esterase Moderate H (Negative) Urine RBC <1 (0-5) /hpf Urine WBC 25 H (0-5) /hpf Ur Squamous Epith Cells 3 (0-4) /hpf Urine Bacteria Rare H (None) /hpf Urine HCG, Qual Not Detected (Not Detectd) Disposition Clinical Impression: Urinary tract infection Disposition: HOME SELF-CARE Condition: Good Instructions (If sedation given, give patient instructions): Safe Sex Practices (ED), Urinary Tract Infection in Women (ED) Additional Instructions: Take Keflex as prescribed for the next 5 days for urinary tract infection. Follow-up with your doctor next week for reevaluation and repeat urinalysis. Always urinate after sexual encounters. Use condoms to prevent risk of sexually transmitted infection. Prescriptions: Cephalexin [Keflex] 500 mg PO BID 5 Days #10 cap Is patient prescribed a controlled substance at d/c from ED?: No Referrals: None,Stated [Primary Care Provider] - 1-2 days Time of Disposition: 02:22
[2023-01-28 02:10] LABS: Appearance,Urine Cloudy (Clear); Bacteria,Urine Rare /hpf; Bilirubin,Urine Negative (Negative); Blood,Urine Negative (Negative); Color,Urine Colorless; Glucose,Urine (UA) Negative (Negative); Ketones,Urine Negative (Negative); Leukocyte Esterase,Urine Moderate (Negative); Nitrite,Urine Negative (Negative); Protein,Urine Negative (Negative); RBC,Urine <1 /hpf (0-5); Specific Gravity,Urine 1.005 (1.001-1.035); Squamous Epithelial Cell,Urine 3 /hpf (0-4); Urobilinogen,Urine <2.0 mg/dL (<2.0); WBC,Urine 25 /hpf (0-5)
[2023-01-28] MEDS ORDERED: CEPHALEXIN 500 MG CAP PO STA (02:20)
[2023-01-28 03:20] VITALS: BP 99/64; PULSE 99; RESP 17
[2023-01-30 15:58] LABS: N. gonorrhoeae,PCR Negative (Negative)
[2023-01-30 15:59] LABS: C. trachomatis,PCR Negative
== END 2023-01-28 03:21 | disposition home or self-care (01) ==
LOC: EC 00:29
DX: N39.0 Urinary tract infection, site not specified (principal); J45.909 Unspecified asthma, uncomplicated; Z91.040 Latex allergy status; Z88.8 Allergy status to other drugs, medicaments and biological substances; Z86.59 Personal history of other mental and behavioral disorders
CPT/HCPCS: 81001; 81025; 87086; 87491; 87591; 99283

== ENCOUNTER 2024-04-12 23:09 | Inpatient (IN) | payer OTHER ==
[2024-04-13] MEDS ORDERED: LIDOCAINE 0.5% (PF) 5 MG/ML (50 ML SDV) SQ PRN (00:39)
[2024-04-13] MEDS ORDERED: OXYTOCIN 10 UNIT/ML 1 ML VIAL IM PRN (00:39)
[2024-04-13] MEDS ORDERED: METHYLERGONOVINE 0.2 MG/ML 1 ML AMP IM PRN (00:39)
[2024-04-13] MEDS ORDERED: miSOPROStoL 200 MCG TAB PO PRN (00:39)
[2024-04-13] MEDS ORDERED: TERBUTALINE 1 MG/ML VIAL SQ PRN (00:39)
[2024-04-13] MEDS ORDERED: miSOPROStoL 200 MCG TAB RECTAL PRN (00:39)
[2024-04-13] MEDS ORDERED: TRANEXAMIC 1,000 MG/100ML-NACL 1,000 MG in EMPTY BAG 1 BAG IV PRN (00:39)
[2024-04-13] MEDS ORDERED: CARBOPROST TROMETHAMINE 250 MCG/ML 1 ML AMP IM PRN (00:39)
[2024-04-13] MEDS: LACTATED RINGERS 1,000 ML IV SCH (01:03)
[2024-04-13 01:28] LABS: Basophils % (A) 0 %; Eosinophils # (A) 0.1 k/uL (0-0.7); Eosinophils % (A) 1 %; HCT 32.5 % (34.0-46.0); HGB 10.1 gm/dL (11.4-16.0); Hypochromasia Moderate; Lymphocytes # (A) 2.1 k/uL (1.0-4.8); Lymphocytes % (A) 20 %; MCH 24.6 pg (25.0-35.0); MCHC 31.1 g/dL (31.0-37.0); MCV 79.1 fL (80.0-100.0); Mean Platelet Volume 10.7; Monocytes # (A) 0.6 k/uL (0-1.0); Monocytes % (A) 6 %; Neutrophils # (A) 7.2 k/uL (1.3-7.7); Neutrophils % (A) 71 %; Platelet Count 174 k/uL (150-450); Poikilocytosis Slight; RBC 4.12 m/uL (3.80-5.40); RDW 15.6 % (11.5-15.5); WBC 10.1 k/uL (3.8-10.6)
[2024-04-13] MEDS ORDERED: SODIUM CHLORIDE 0.9% 250 ML BAG ONE (02:16)
[2024-04-13] MEDS ORDERED: fentaNYL (PF) 50 MCG/ML 5 ML AMP ONE (02:16)
[2024-04-13] MEDS ORDERED: ROPIVACAINE 5 MG/ML 30 ML VIAL ONE (02:16)
[2024-04-13] MEDS: diphenhydrAMINE 50 MG/ML 1 ML VIAL IVP STA (05:12)
--- NOTE | 2024-04-13 07:45 | P.HPOB ---
History of Present Illness H&P Date: 04/13/24 Chief Complaint: labor 23 year old presents at 37 weeks 5 days in labor. Her cervix is 5/90/-2. She is jeannette every few minutes. heart tones 135 with moderate variability and reactive. Review of Systems All systems: negative Constitutional: Denies chills, Denies fever Eyes: denies blurred vision, denies pain Ears, nose, mouth and throat: Denies headache, Denies sore throat Cardiovascular: Denies chest pain, Denies shortness of breath Respiratory: Denies cough Gastrointestinal: Denies abdominal pain, Denies diarrhea, Denies nausea, Denies vomiting Genitourinary: Denies dysuria, Denies hematuria Musculoskeletal: Denies myalgias Integumentary: Denies pruritus, Denies rash Neurological: Denies numbness, Denies weakness Psychiatric: Denies anxiety, Denies depression Endocrine: Denies fatigue, Denies weight change Past Medical History Past Medical History: Asthma History of Any Multi-Drug Resistant Organisms: None Reported Past Surgical History: Appendectomy Past Anesthesia/Blood Transfusion Reactions: No Reported Reaction Past Psychological History: Anxiety Smoking Status: Never smoker Past Alcohol Use History: None Reported Past Drug Use History: None Reported - Past Family History Mother History Unknown: Yes Additional Family Medical History / Comment(s): gestational diabetes Medications and Allergies Home Medications Medication Instructions Recorded Confirmed Type Pnv,Calcium 72/Iron/Folic Acid 1 tab PO DAILY 12/22/21 04/12/24 History [Westab Plus Tablet] Allergies Allergy/AdvReac Type Severity Reaction Status Date / Time latex Allergy Rash/Hives Verified 03/29/24 10:51 adhesive tape AdvReac Rash/Hives Verified 03/29/24 10:51 Exam Osteopathic Statement: *. No significant issues noted on an osteopathic structural exam other than those noted in the History and Physical/Consult. Vital Signs Temp Pulse Resp BP Pulse Ox 04/13/24 00:53 97.9 F 89 16 114/73 98 04/12/24 23:21 97.9 F 89 16 114/73 98 Intake and Output 04/12/24 04/13/24 04/13/24 22:59 06:59 14:59 Output Total 300 Balance -300 Output: Urine 300 Other: Weight 73.936 kg Heart: Regular rate and rhythm Lungs: Clear to auscultation bilaterally Abdomen: Soft, nontender Extremities: Negative Homans sign Results Result Diagrams: 04/13/24 01:04 Abnormal Lab Results - Last 24 Hours (Table) 04/13/24 Range/Units 01:04 Hgb 10.1 L (11.4-16.0) gm/dL Hct 32.5 L (34.0-46.0) % MCV 79.1 L (80.0-100.0) fL MCH 24.6 L (25.0-35.0) pg RDW 15.6 H (11.5-15.5) % Assessment and Plan (1) Normal labor Current Visit: Yes Status: Acute Code(s): O80 - ENCOUNTER FOR FULL-TERM UNCOMPLICATED DELIVERY; Z37.9 - OUTCOME OF DELIVERY, UNSPECIFIED SNOMED Code(s): 66051016 Plan: 1. admit to [facility] 2. expectant management 3. anticipate normal vaginal delivery
[2024-04-13] MEDS ORDERED: SIMETHICONE 80 MG CHEWABLE PO PRN (13:10)
[2024-04-13] MEDS ORDERED: HYDROCORTISONE 2.5% RECTAL CREAM 30 GM TUBE RECTAL PRN (13:10)
[2024-04-13] MEDS ORDERED: ZOLPIDEM 5 MG TAB PO PRN (13:10)
[2024-04-13] MEDS ORDERED: BENZOCAINE/MENTHOL SPRAY 1 GM/SPRAY AEROSOL TOPICAL PRN (13:10)
[2024-04-13] MEDS ORDERED: diphenhydrAMINE 50 MG/ML 1 ML VIAL IVP PRN ×2 (13:10)
[2024-04-13] MEDS ORDERED: diphenhydrAMINE 25 MG CAP PO PRN (13:10)
[2024-04-13] MEDS ORDERED: LANOLIN CREAM 1 GM TUBE TOPICAL PRN (13:10)
[2024-04-13] MEDS ORDERED: diphenhydrAMINE 50 MG CAP PO PRN (13:10)
[2024-04-13] MEDS: IBUPROFEN 800 MG TAB PO SCH (13:41)
[2024-04-13] MEDS: SENNOSIDES-DOCUSATE SODIUM 1 EACH TAB PO SCH (13:43)
[2024-04-13] MEDS: ACETAMINOPHEN TAB 500 MG TAB PO SCH (17:17)
[2024-04-13] MEDS: AMPICILLIN 2,000 MG in SODIUM CHLORIDE 0.9% 100 ML IVPB STA (22:29)
[2024-04-13] MEDS: AMPICILLIN 1,000 MG in SODIUM CHLORIDE 0.9% 50 ML IVPB SCH (22:30)
--- NOTE | 2024-04-14 07:21 | P.PROBDLV ---
Vaginal Delivery Note - . Vaginal Delivery Note: This is a 23-year-old 4 para 2-1-0-2 presents to labor and delivery in active labor. Patient was admitted to labor and delivery and amniotomy was performed. Patient requested epidural. Epidural was placed without difficulty by the anesthesia department. Patient progressed to complete began pushing and had a normal spontaneous vaginal delivery of a viable female infant at 1251, weight of 7 pounds 5.8 ounces. Patient did not sustain any vaginal lacerations during delivery. After 2-minute delay the umbilical heart is doubly clamped and cut and the stent was delivered spontaneously intact with a three-vessel cord being noted. Uterus was noted be firm below the umbilicus. Estimate blood loss 100 cc. Patient and tolerated delivery well and are resting comfortably. All counts were to be correct x 2 at the end of the delivery.
--- NOTE | 2024-04-14 07:24 | P.DS ---
Providers Date of admission: 04/13/24 00:40 Expected date of discharge: 04/14/24 Attending physician: Alexus Marquez Primary care physician: Stated None - Discharge Diagnosis(es) (1) Active labor Current Visit: Yes Status: Acute (2) 38 weeks gestation of Current Visit: No Status: Acute (3) Status post normal vaginal delivery Current Visit: Yes Status: Acute Hospital Course: This is a 23-year-old 4 para 2-1-0-2 that presented to labor and delivery in active labor. For full details in this patient please the dictated history and physical. Patient had a normal spontaneous vaginal delivery of a viable female infant at 1251 on 04/13. Patient has done well . On this day #1 she is ambulating and voiding without difficulty. She is breast-feeding without difficulty. She states her pain is controlled with oral ibuprofen. She denies concerns and would like discharge home at 24 hours of possible. Patient Condition at Discharge: Good Plan - Discharge Summary Discharge Rx Participant: No New Discharge Prescriptions: No Action Pnv,Calcium 72/Iron/Folic Acid [Westab Plus Tablet] 1 tab PO DAILY Discharge Medication List Pnv,Calcium 72/Iron/Folic Acid [Westab Plus Tablet] 1 tab PO DAILY 12/22/21 [History] Follow up Appointment(s)/Referral(s): Alexus Marquez DO [Doctor of Osteopathic Medicine] - 05/25/24 1:15 pm (6 week follow up appt 05/25/2024 @ 1:15pm) Patient Instructions/Handouts: Vaginal Delivery (DC), Vaginal Delivery (GEN) Activity/Diet/Wound Care/Special Instructions: No tub baths or intercourse until 6 weeks . Ibuprofen 600 mg every 6 hours as needed for pain. routine visit [address] Marquez. Discharge Disposition: HOME SELF-CARE
[2024-04-14 07:54] VITALS: BP 110/75; PULSE 71; RESP 16; TEMP 98.3
[2024-04-14] MEDS: PRENATAL VIT-IRON-FOLIC ACID 1 EACH TABLET PO SCH (09:57)
== END 2024-04-14 14:15 | disposition home or self-care (01) | DRG 560 ==
LOC: FBPOP 23:09 → 4FBP 04-13 00:40
PROVIDERS: ADMIT Obstetrics & Gynecology; ATTEND Obstetrics & Gynecology
PROC: 10E0XZZ Delivery of Products of Conception, External Approach (ICD-10-PCS; principal; 2024-04-13)
DX: O99.52 Diseases of the respiratory system complicating childbirth (principal); J45.909 Unspecified asthma, uncomplicated; Z37.0 Single live birth; Z3A.38 38 weeks gestation of pregnancy
CPT/HCPCS: 59025; 84112; 85025; 86850; 86900; 86901; 99213